=== PATIENT | female | born 1975 | race Caucasian/White ===

== ENCOUNTER → 2018-03-22 08:42 | Outpatient (CLI) | payer BC, SELFPAY ==
--- NOTE | 2018-03-22 08:44 | MM_ITS ---
MM Dig screening mamm BI w/CAD ORDERING PHYSICIAN : Benjie Thomas MD PATIENT AGE: 42 years GENDER: Female COMPARISON: July INDICATION: ITS.REASON: screening. Previous stereotactic biopsy on the left TECHNIQUE: Standard CC and MLO images were obtained. R2 CAD reviewed. FINDINGS: Moderately dense heterogeneous. The pattern does slightly decrease sensitivity mammography. There is fibroglandular elements extending deep into the axillary tail of both breast. This appearance is been seen previously. Unchanged since last years study Patient denies female hormones but the Fibroglandular elements accentuated today versus study from 2013 possibly reflecting phase of menstrual cycle RIGHT BREAST:. No new areas of significant concern. Slightly unusual distribution stable. . Again the fibroglandular elements extending deep into the axillary tail of both breast is noted LEFT BREAST:No new areas of significant concern. . The metallic marker from previous left percutaneous biopsy is evident. Upper-outer quadrant left breast, far lateral. -------IMPRESSION: No new areas of significant concern. Moderately dense heterogeneous breast bilaterally again evident.. We again see a slightly unusual distribution of fibroglandular elements disease continues deep into the axillary tail of both right and left breast. Physical exam towards this axillary tail and axilla important to compliment mammography as the fibroglandular elements may extend slightly posterior to our image on this and prior studies. Again I see no focal new areas concern but this slight anatomic variant aspect noted Clinical follow-up should be emphasized and encouraged BI-RADS Category: 2 Benign Finding(s) RECOMMENDED FOLLOW-UP: 1YR 1 YEAR FOLLOW-UP (A letter has been sent to the patient regarding results of the study.)
== END ==
PROVIDERS: Family Provider Family Medicine; PCP Family Medicine; Visit Provider Obstetrics & Gynecology
DX: Z12.31 Encounter for screening mammogram for malignant neoplasm of breast (principal)
CPT/HCPCS: 77067

== ENCOUNTER → 2018-04-18 17:56 | Outpatient (CLI) | payer BC, SELFPAY ==
--- NOTE | 2018-04-18 18:05 | XR_ITS ---
XR chest 2V HISTORY: ITS.REASON: ACUTE PAIN OF RIGHT SHOULDER, WEAKNESS OF RIGHT ARM ORDERING PHYSICIAN: Kristine Serrano PATIENT AGE: 42 years COMPARISON: 09/17/2016 FINDINGS: Unremarkable cardiovascular structures. There is thickening of the right minor fissure. Patchy density is present in the right middle lobe which could be due to some mild infiltrate or postinflammatory scarring. There was dense consolidation in the right middle lobe on the older exam. Left lung is clear. There is a bone plate over the lower cervical spine and there are surgical clips in the right upper quadrant. IMPRESSION: Thickening of the right minor fissure with patchy density in the right perihilar region/right middle lobe which could be related to postinflammatory fibrotic change or recurrent infiltrate. Recommend continued follow-up to confirm resolution or stability
== END ==
PROVIDERS: PCP Nurse Practitioner; Visit Provider Nurse Practitioner
DX: M25.511 Pain in right shoulder (principal); R29.898 Other symptoms and signs involving the musculoskeletal system
CPT/HCPCS: 71046

== ENCOUNTER → 2018-04-30 07:34 | Outpatient (CLI) | payer BC, SELFPAY ==
--- NOTE | 2018-04-30 08:00 | CT_ITS ---
CT chest w con HISTORY: Previous bilateral pneumonia 2017 ITS.REASON: ACUTE RT SHOULDER PAIN, RT ARM PAIN ORDERING PHYSICIAN: Kristine Serrano PATIENT AGE: 42 years COMPARISON: CT Chest without contrast September 2016 Technique:. 75 cc Isovue 370 contrast utilized IV. Axial images obtained. Sagittal and coronal reformatted images are also generated and reviewed. All CT scans at the facility use one or more dose reduction, viz: automated exposure control, ma/kV adjustment per patient size (including targeted exams where dose is matched to indication, i.e. head), or iterative reconstruction technique. FINDINGS: Thyroid follow. Unlikely 8.5 mm thyroid nodule upper pole left lobe thyroid. Likely stable. Consider thyroid ultrasound. Mediastinum. No mediastinal mass nor adenopathy of significance. . Small calcified granulomatous nodes at left dorene more so than right Heart is normal in size Aorta, normal caliber satisfactory appearance. Aortic root measuring 3.3 cm Pulmonary artery appears satisfactory with moderate enhancement. LUNG DOSS. There is area of density at the periphery of the right lung. This involves the right middle lobe with slight volume loss in this area to right middle lobe. Given its linear appearance on the coronal view along with the evident more severe pneumonia here previously September 2016, I tend to favor reviewing an area of residual postinflammatory scarring. However this does warrant follow-up and I would recommend a follow-up CT chest in 4- 6 months to confirm stability and reestablish baseline. For this density. There are also some small nodular densities at the right midlung and perihilar region measuring less than 3 mm. Some of these are seen on axial axial image 42-43 & . Also on axial image 38 there is a small 4.5 mm nodular density likely due to scarring as it this into which seems to elongate on the sagittal image 27. Similar density density on axial image 46 at right infrahilar area becomes less evident on other views.. On axial image 53 there is a millimeter nodule at the right CP angle region. This too would benefit from short interval follow-up to sure stability with longer intervals thereafter. On axial image 38, sagittal 54-there is a 5.3 mm nodular density at LLL posterior to the left dorene... Stable small 4 mm calcified granuloma is seen lateral to the left infrahilar region axial image 45 Upper abdomen. Diffuse fatty changes liver likely present. No additional significant findings. Adrenals unremarkable. PLEURAL SPACES: No pleural effusion or pleural thickening... No evidence of pneumothorax. BONY STRUCTURES: No remarkable bony findings. I IMPRESSION 1. Residual linear/slight triangular density at RML and extending along the minor fissure- most likely reflects residual postinflammatory changes & scarring from the 2017 pneumonia. 2. Small, and tiny scattered nodular densities bilaterally. Likely in part sequela from the previous pneumonia is-These are most evident in the right lung & at areas of previous pneumonia. .. With Suggest a follow-up CT chest in 4-6 months to better confirm stability of these densities and nodularity,-& reestablish new baseline
--- NOTE | 2018-04-30 08:00 | CT_ITS ---
CT shoulder RT wo con Ordering Physician: Kristine Serrano Patient Age: 42 years: Female HISTORY: ITS.REASON: ACUTE RT SHOULDER PAIN, RT ARM PAIN TECHNIQUE: Helical CT scanning performed right shoulder. No IV contrast utilized. Axial sagittal and coronal reconstructions performed on CT workstation. All CT scans at this facility used one or more dose reduction techniques , viz: automatic exposure control, ma/Kv adjustment per patient's size, (including targeted exam where dose matched to the indication; i.e. head); or iterative reconstruction technique COMPARISON no shoulder studies:Only previous chest films available FINDINGS The right shoulder appears stable, intact glenohumeral joint intact. AC joint intact. Adequate subacromial space. Humeral head and neck appear satisfactory. No arthritic changes or lesion evident. Scapula appears normal. Clavicle & upper ribs appear satisfactory Without intra-articular contrast CT is limited to evaluate the soft tissues and rotator cuff.. MR is best modality to evaluate the rotator cuff.. However. I see no prominent findings here on today's study.. Soft tissues on today's survey appears satisfactory... Deltoid and other regional muscles appears grossly satisfactory. No obvious joint effusion. Limited images through region of brachial plexus appears satisfactory. Linear triangular density at RML, thickening of the minor fissure and the Scattered small nodular densities at the right lung are again noted as described on CT chest recommended follow-up CT chest 4-6 months to confirm stability of this most prominent RML density as well as stable likely of scattered new areas of nodularity. IMPRESSION: Normal CT right shoulder. Normal relationships. No fracture or findings or lesion. The glenohumeral joint, & AC joint intact. Addendum. Incidental 8 mm nodule upper pole right thyroid noted today's CT chest as well as this CT shoulder study.
== END ==
PROVIDERS: PCP Family Medicine; Visit Provider Nurse Practitioner
DX: M25.511 Pain in right shoulder (principal); R29.898 Other symptoms and signs involving the musculoskeletal system
CPT/HCPCS: 71260; 73200; Q9967

== ENCOUNTER → 2018-05-23 10:18 | Outpatient (CLI) | payer BC, SELFPAY ==
--- NOTE | 2018-05-23 10:27 | US_ITS ---
US thyroid HISTORY: ITS.REASON: THYROID NODULE ORDERING PHYSICIAN: Kristine Serrano PATIENT AGE: 43 years Comparison: 04/30/2018 FINDINGS: Right lobe: The right lobe measures 4 x 1.5 x 1.5 cm. There is a solid appearing 1.3 x 1 cm nodule within the mid polar region with mixed echogenicity having a lobular contour Left lobe: The left lobe measures 4 x 1.2 x 2.1 cm and has an unremarkable appearance. The isthmus has an unremarkable appearance. IMPRESSION: 13 x 10 mm solid appearing nodule of the right lobe of the thyroid gland. Recommend six-month follow-up to confirm short-term stability
== END ==
PROVIDERS: PCP Family Medicine; Visit Provider Nurse Practitioner
DX: E04.1 Nontoxic single thyroid nodule (principal)
CPT/HCPCS: 76536

== ENCOUNTER → 2018-07-02 06:47 | Outpatient (CLI) | payer BC, SELFPAY ==
--- NOTE | 2018-07-02 07:10 | NM_ITS ---
NM thyroid image uptake CLINICAL INDICATION: ITS.REASON: THYROID NODULE ORDERING PHYSICIAN: Kristine Serrano PATIENT AGE: 43 years Comparison: 05/23/2018 DOSE: 303 uCi I-123 by mouth FINDINGS: 24 hour radioiodine uptake normal 25. There is decreased activity involving the upper pole of the right lobe of the thyroid gland which corresponds to the solid nodule as seen on the recent ultrasound. The right lobe and isthmus are somewhat prominent IMPRESSION: 1. Normal 24-hour radioiodine uptake. 2. Solid nodule in the upper pole of the right lobe of the thyroid gland demonstrates decrease activity. Biopsy is suggested. Recommend ultrasound-guided fine-needle aspiration of this nodule
== END ==
PROVIDERS: PCP Nurse Practitioner; Visit Provider Nurse Practitioner
DX: E04.1 Nontoxic single thyroid nodule (principal)
CPT/HCPCS: 78014; A9516

== ENCOUNTER → 2018-07-16 12:32 | Outpatient (CLI) | payer BC, SELFPAY ==
--- NOTE | 2018-07-16 13:00 | US_ITS ---
FNA w guidance, US thyroid HISTORY: Suspicious right thyroid nodule hypoactive on I-123 scan ITS.REASON: THYROID NODULE ORDERING PHYSICIAN: Jonas Vigil MD PATIENT AGE: 43 years COMPARISON: 05/23/2018, 07/02/2018 Prebiopsy ultrasound: Ultrasound performed of the thyroid gland once again demonstrates a solid-appearing nodule in the upper pole the right lobe measuring 14 x 12 mm with possible microcalcifications in the nodule. Biopsy planning was performed and a site marked on the patient's neck for needle placement. TECHNIQUE: Following obtaining informed consent, using aseptic technique and local anesthesia with buffered lidocaine, fine-needle aspiration was performed of the nodule of interest using sonographic guidance. 3 passes were made into the nodule with a 25-gauge needle. Specimen was given to cytology. The patient tolerated the procedure well without evidence of immediate complications and left the ultrasound suite in stable condition. CYTOLOGY:Suspicious for papillary carcinoma IMPRESSION: Fine-needle aspiration of the right lobe of the thyroid gland is suspicious for papillary carcinoma. ENT consult suggested
== END ==
PROVIDERS: PCP Family Medicine; Visit Provider Family Medicine
DX: E04.1 Nontoxic single thyroid nodule (principal)
CPT/HCPCS: 10005; 76536

== ENCOUNTER → 2019-04-25 15:43 | Outpatient (CLI) | payer BC, SELFPAY ==
--- NOTE | 2019-04-25 15:45 | MM_ITS ---
PROCEDURE: MM DIG SCREENING MAMM BI W/CAD CLINICAL INDICATION: screening There is a history of breast cancer in the patient's paternal aunt diagnosed before menopause. There has been a previous biopsy left breast for benign disease COMPARISON: [facility]MDX[facility] DIG MAMM-DX UNI-LT from 05/22/2015 [facility] DIG MAMM-SCREEN RADHA W/CAD from 08/04/2016 [facility] MM Dig screening mamm BI w/CAD from 03/22/2018 TECHNIQUE: Standard CC and MLO images were obtained. R2 CAD reviewed. FINDINGS: Prominent diffuse fibroglandular densities are seen throughout both breasts. There is a biopsy clip upper outer quadrant left breast. There are couple of benign-appearing microcalcifications left breast. There is no suspicious lesion and no suspicious microcalcifications. IMPRESSION: Moderate diffuse breast density with no suspicious lesions seen BI-RAD Category: 2 Benign Finding(s) FOLLOW-UP: 1YR 1 Year Follow-up (A letter has been sent to the patient regarding results of the study.) Dictated by: Dr. James Ledezma MD 04/28/2019 13:[address] James Ledezma MD in [place] 04/28/2019 13:58
== END ==
PROVIDERS: PCP Family Medicine; Visit Provider Obstetrics & Gynecology
DX: Z12.31 Encounter for screening mammogram for malignant neoplasm of breast (principal)
CPT/HCPCS: 77067

== ENCOUNTER → 2021-02-22 12:35 | Outpatient (CLI) | payer BC, SELFPAY | PROVIDERS: PCP Nurse Practitioner Family; Visit Provider Nurse Practitioner Family | DX: Z20.822 Contact with and (suspected) exposure to COVID-19 (principal) | CPT/HCPCS: C9803; U0003; U0005 ==

== ENCOUNTER → 2021-05-28 08:43 | Outpatient (CLI) | payer BC, SELFPAY | PROVIDERS: PCP Family Medicine; Visit Provider Nurse Practitioner | DX: U07.1 COVID-19 (principal) | CPT/HCPCS: C9803; U0003; U0005 ==

== ENCOUNTER → 2021-06-04 08:28 | Outpatient (CLI) | payer BC, SELFPAY | PROVIDERS: PCP Family Medicine; Visit Provider Nurse Practitioner | DX: U07.1 COVID-19 (principal) | CPT/HCPCS: C9803; U0003; U0005 ==

== ENCOUNTER → 2021-06-28 16:42 | Outpatient (CLI) | payer BC, SELFPAY ==
--- NOTE | 2021-06-28 16:43 | MM_ITS ---
PROCEDURE INFORMATION: Exam: MG Bilateral Screening 3D Mammography Exam date and time: 06/28/2021 4:43 PM Age: 46 years old Clinical indication: Encounter for screening mammogram for malignant neoplasm of breast TECHNIQUE: Imaging protocol: Screening tomosynthesis and 2D mammography including computer-aided detection (CAD) when performed. COMPARISON: 1. MG MM DIG SCREENING MAMM BI W/CAD 04/25/2019 4:26 PM 2. MG [facility] MM Dig screening mamm BI w/CAD 03/22/2018 8:48 AM FINDINGS: MAMMOGRAPHY: Breast composition: The breast tissue is heterogeneously dense, which may obscure small masses. Mass: None. Architectural distortion: None. Calcifications: No suspicious calcifications. Asymmetric density: None. Skin thickening: None. Axillary adenopathy: None. IMPRESSION: No mammographic evidence of malignancy. Annual screening is recommended unless otherwise clinically indicated. ASSESSMENT: BI-RADS Category 1: Negative
== END ==
PROVIDERS: PCP Family Medicine; Visit Provider Obstetrics & Gynecology
DX: Z12.31 Encounter for screening mammogram for malignant neoplasm of breast (principal)
CPT/HCPCS: 77063; 77067

== ENCOUNTER → 2022-07-01 07:53 | Outpatient (CLI) | payer BC, SELFPAY ==
--- NOTE | 2022-07-01 07:53 | MM_ITS ---
PROCEDURE INFORMATION: Exam: MG Bilateral Screening 3D Mammography Exam date and time: 07/01/2022 7:57 AM Age: 47 years old Clinical indication: Screening examination TECHNIQUE: Imaging protocol: Bilateral Screening tomosynthesis and 2D mammography including computer-aided detection (CAD) when performed. COMPARISON: 1. MG MM DIG SCREENING MAMM BI W/CAD 06/28/2021 4:40 PM 2. MG MM DIG SCREENING MAMM BI W/CAD 04/25/2019 4:26 PM FINDINGS: MAMMOGRAPHY: Breast composition: There are scattered areas of fibroglandular density. Mass: None. Architectural distortion: None. Calcifications: No suspicious calcifications. Asymmetric density: None. Skin thickening: None. Axillary adenopathy: None. IMPRESSION: No mammographic evidence of malignancy. Annual screening is recommended unless otherwise clinically indicated. ASSESSMENT: BI-RADS Category 1: Negative
== END ==
PROVIDERS: PCP Family Medicine; Visit Provider Obstetrics & Gynecology
DX: Z12.31 Encounter for screening mammogram for malignant neoplasm of breast (principal)
CPT/HCPCS: 77063; 77067

== ENCOUNTER → 2022-08-19 10:25 | Outpatient (CLI) | payer BC, OTHER, SELFPAY ==
--- NOTE | 2022-08-19 10:29 | XR_ITS ---
FINAL REPORT CLINICAL HISTORY: back pain x 2 days no trauma may have lifted suitcase wrong FINDINGS: THORACIC SPINE Three views were obtained. There is no acute fracture. There is no malalignment. There is leftward curvature. There are [id number] degenerative changes. There is no soft tissue abnormality. IMPRESSION: Mild to moderate degenerative change with no acute bony abnormality. Reviewed, Interpreted and Dictated by Luis Ahmadi III, MD Transcribed by Alberta June Authenticated and [facility]
== END ==
PROVIDERS: PCP Family Medicine; Visit Provider Family Medicine
DX: M54.9 Dorsalgia, unspecified (principal); M54.6 Pain in thoracic spine
CPT/HCPCS: 72072

== ENCOUNTER → 2022-09-07 14:26 | Outpatient (CLI) | payer BC, OTHER, SELFPAY ==
--- NOTE | 2022-09-07 14:27 | MR_ITS ---
FINAL REPORT TECHNIQUE: Multiplanar and multisequence MR imaging was obtained through the thoracic spine. CLINICAL HISTORY: back pain bilateral arm numbness x 1 month FINDINGS: There is normal alignment of the thoracic vertebral bodies. Vertebral body height is preserved. There is a hemangioma in the midthoracic vertebral body. Signal intensity within the substance of the spinal cord is normal. No acute paraspinal abnormality is identified. There is no focal disc herniation, central stenosis, or foraminal narrowing. IMPRESSION: Unremarkable MRI of the thoracic spine. Reviewed, Interpreted and Dictated by Jennifer Cramer MD Transcribed by Juliana Frias Authenticated and [facility]
== END ==
PROVIDERS: PCP Family Medicine; Visit Provider Family Medicine
DX: M54.9 Dorsalgia, unspecified (principal); M54.6 Pain in thoracic spine
CPT/HCPCS: 72146

== ENCOUNTER → 2023-02-15 07:48 | Outpatient (CLI) | payer BC, OTHER, SELFPAY ==
[2023-02-15 07:55] LABS: Microscopic, Urine URINE MICROSCOPIC (MICROSCOPIC)
[2023-02-15 08:14] LABS: Appearance,Urine CLEAR (Clear); Bilirubin,Urine Negative (Negative); Blood, Urine TRACE-I (Negative); Color,Urine YELLOW (Yellow); Glucose,Urine (UA) Negative (Negative); Ketones,Urine Negative (Negative); Leukocyte Esterase,Urine Negative (Negative); Nitrate,Urine Negative (Negative); Protein,Urine Negative (Negative); Specific Gravity, Urine >= 1.030 (1.005-1.030); Urobilinogen,Urine 0.2 EU/dl (0.2)
[2023-02-15 08:19] LABS: Basophils # 0.1 K/mm3 (0-0.2); Basophils % 1.6 % (0.1-2.0); Eosinophils # 0.1 K/mm3 (0.0-0.4); Eosinophils % 1.6 % (0.1-12.0); Hemoglobin 13.1 g/dL (12.2-16.2); Lymphocytes # 2.2 K/mm3 (0.7-4.5); Lymphocytes % 30.7 % (10-50); Mean Corpuscular HGB Conc 32.7 g/dL (31.8-35.4); Mean Corpuscular Hemoglobin 28.6 pg (27.0-31.2); Mean Corpuscular Volume 87.7 fl (81-99); Mean Platelet Volume 8.9 fl (7.4-10.4); Monocytes # 0.3 K/mm3 (0.1-1.0); Monocytes % 4.6 % (1.7-9.3); Neutrophils # 4.4 K/mm3 (1.8-7.8); Neutrophils % 63.1 % (37.0-80.0); Platelet Count 258 K/mm3 (142-424); Red Blood Count 4.56 M/mm3 (4.20-5.40); Red Cell Distribution Width 13.6 % (11.5-17.5)
[2023-02-15 08:24] LABS: Squamous Epithelial Cell,Urine Occasional #/hpf (0-5); WBC,Urine Occasional #/hpf (0-3)
[2023-02-15 09:09] LABS: Alanine Aminotransferase 27 U/L (12-78); Albumin Level 4.4 g/dl (3.5-5.0); Albumin/Globulin Ratio 1.8 (1.1-1.8); Alkaline Phosphatase 88 U/L (38-126); Anion Gap 12.3 mEq/L (5-15); Aspartate Amino Transferase 27 U/L (14-36); Blood Urea Nitrogen 28 mg/dl (7-17); Calcium 8.5 mg/dl (8.4-10.2); Carbon Dioxide 29 mmol/L (22.0-30.0); Chloride 105 mmol/L (98-107); Chol/HDL Ratio 3.1 (1-3.5); Cholesterol 179 mg/dl (140-200); Estimated Glomerular Filt Rate 89 ml/min (>60); GFR (African American) 108 ML/MIN (>60); Globulin 2.5 g/dL (1.3-3.2); Glucose 95 mg/dl (74-100); HDL Cholesterol 58 mg/dl (40-60); Potassium 4.3 mmoL/L (3.5-5.1); Sodium 142 mmol/L (136-145); Total Protein,Serum 6.9 g/dl (6.3-8.2); Triglycerides 78 mg/dl (30-150); VLDL Cholesterol 16 mg/dL (0-40)
[2023-02-15 09:15] LABS: Bilirubin,Total 0.1 mg/dl (0.2-1.3)
[2023-02-15 09:21] LABS: Direct LDL Cholesterol 92.26 mg/dL (100-129)
[2023-02-15 09:25] LABS: Free T4 (Free Thyroxine) 1.13 ng/dl (0.78-2.19)
[2023-02-15 09:26] LABS: 25-OH Vitamin D, Total 101 ng/mL (30-100)
[2023-02-15 09:39] LABS: Thyroid Stimulating Hormone 2.09 uIU/mL (0.465-4.68)
[2023-02-15 11:27] LABS: Total Protein,Urine Random < 5.0 mg/dL (0.0-12.0)
[2023-02-15 12:20] LABS: Vitamin B12 4060 pg/mL (239-931)
== END ==
PROVIDERS: PCP Nurse Practitioner Family; Visit Provider Nurse Practitioner Family
DX: I10 Essential (primary) hypertension (principal); E03.9 Hypothyroidism, unspecified; R53.83 Other fatigue; E67.3 Hypervitaminosis D; Z13.1 Encounter for screening for diabetes mellitus; Z13.220 Encounter for screening for lipoid disorders; Z79.899 Other long term (current) drug therapy
CPT/HCPCS: 36415; 80053; 80061; 81001; 82306; 82607; 83036; 84155; 84439; 84443; 85025; 87086

== ENCOUNTER 2023-07-17 07:39 | Outpatient (CLI) | payer BC, OTHER, SELFPAY ==
--- NOTE | 2023-07-17 07:40 | MM_ITS ---
PROCEDURE INFORMATION: Exam: MG Bilateral Screening 3D Mammography Exam date and time: 07/17/2023 7:51 AM Age: 48 years old Clinical indication: Screening examination TECHNIQUE: Imaging protocol: Bilateral Screening tomosynthesis and 2D mammography including computer-aided detection (CAD) when performed. COMPARISON: 1. MG MM DIG SCREENING MAMM BI W/CAD 07/01/2022 7:57 AM 2. MG MM DIG SCREENING MAMM BI W/CAD 06/28/2021 4:40 PM FINDINGS: MAMMOGRAPHY: Breast composition: There are scattered areas of fibroglandular density. Mass: Questionable 0.5 cm mass in the posterior left medial breast only seen in the craniocaudal projection. Architectural distortion: None. Calcifications: No suspicious calcifications. Asymmetric density: None. Skin thickening: None. Axillary adenopathy: None. IMPRESSION: Patient to be recalled for a spot compression view of the left breast in the craniocaudal projection, a full 90 degree lateral view of the left breast, and left breast ultrasound for further evaluation of a questionable left breast mass. ASSESSMENT: BI-RADS Category 0: Incomplete- Need Additional Imaging Evaluation and/or Prior Mammograms for Comparison
== END 2023-07-17 23:59 ==
LOC: RAD 07:40
PROVIDERS: PCP Nurse Practitioner Family; Visit Provider Obstetrics & Gynecology
DX: Z12.31 Encounter for screening mammogram for malignant neoplasm of breast (principal)
CPT/HCPCS: 77063; 77067

== ENCOUNTER 2023-07-20 15:13 | Outpatient (CLI) | payer BC, OTHER, SELFPAY ==
--- NOTE | 2023-07-20 15:23 | US_ITS ---
PROCEDURE INFORMATION: Exam: US Left Breast, Complete MG Left Diagnostic Breast Tomosynthesis Exam date and time: 07/20/2023 3:14 PM Age: 48 years old Clinical indication: Patient recalled on the basis of a screening mammogram for further evaluation; Left breast; mass TECHNIQUE: Imaging protocol: Complete ultrasound of all four quadrants of the left breast and the retroareolar regions, including ultrasound of the axilla when performed. Left Diagnostic tomosynthesis and 2D mammography including computer-aided detection (CAD) when performed. Unilateral or bilateral exam. COMPARISON: 1. MG MM DIG SCREENING MAMM BI W/CAD 07/17/2023 7:51 AM 2. MG MM DIG SCREENING MAMM BI W/CAD 07/01/2022 7:57 AM FINDINGS: MAMMOGRAPHY: Digital diagnostic spot compression views of the left breast and 90 degree lateral view of the left breast demonstrate normal overlapping fibroglandular structures without persistent mass or asymmetry identified. ULTRASOUND: Sonographic images of the left breast demonstrate an incidental 0.5 cm 11 o'clock axis cyst 9 cm from the nipple in close proximity to a 0.4 cm cyst. No solid masses. No architectural distortion or acoustical shadowing. No skin thickening or axillary adenopathy. IMPRESSION: No mammographic or sonographic evidence of malignancy. Annual bilateral mammographic screening is recommended unless otherwise clinically indicated. ASSESSMENT: BI-RADS Category 2: Benign
== END 2023-07-20 23:59 ==
LOC: RAD 15:14
PROVIDERS: PCP Nurse Practitioner Family; Visit Provider Obstetrics & Gynecology
DX: N63.20 Unspecified lump in the left breast, unspecified quadrant (principal); R92.8 Other abnormal and inconclusive findings on diagnostic imaging of breast
CPT/HCPCS: 76641; 77061; 77065; G0279

== ENCOUNTER 2023-12-05 09:54 | Outpatient (CLI) | payer BC, OTHER, SELFPAY ==
--- NOTE | 2023-12-05 09:55 | US_ITS ---
PROCEDURE INFORMATION: Exam: US Left Breast, Complete Exam date and time: 12/05/2023 9:54 AM Age: 48 years old Clinical indication: Palpable abnormality in the left breast TECHNIQUE: Imaging protocol: Complete ultrasound of all four quadrants of the left breast and the retroareolar regions, including ultrasound of the axilla when performed. COMPARISON: US BREAST LT COMPLETE 07/20/2023 3:34 PM FINDINGS: ULTRASOUND: Breast ultrasound findings: Sonographic images of the left breast including the retroareolar region, all 4 quadrants and the axilla do not demonstrate any solid masses. Minimal subcentimeter cystic change is scattered in the left breast including the left 11 o'clock axis 7 cm from the nipple where a 0.3 cm cyst is noted. Cursors were placed in the left 11 o'clock axis 7 cm from the nipple over benign cystic change and adjacent normal fibroglandular tissue. No architectural distortion or acoustical shadowing. No skin thickening or axillary adenopathy. IMPRESSION: A skin marker should be placed over the area of palpable concern followed by a diagnostic unilateral mammogram with spot compression views for full evaluation of the patient's complaint of a palpable abnormality. ASSESSMENT: BI-RADS Category 0: Incomplete- Need Additional Imaging Evaluation and/or Prior Mammograms for Comparison.
== END 2023-12-05 23:59 | disposition home or self-care (01) ==
LOC: RAD 09:55
PROVIDERS: PCP Nurse Practitioner Family; Visit Provider Obstetrics & Gynecology
DX: N63.22 Unspecified lump in the left breast, upper inner quadrant (principal)
CPT/HCPCS: 76641

== ENCOUNTER 2023-12-18 13:59 | Outpatient (CLI) | payer BC, OTHER, SELFPAY ==
--- NOTE | 2023-12-18 14:00 | MM_ITS ---
PROCEDURE INFORMATION: Exam: MG Left Diagnostic Breast Tomosynthesis Exam date and time: 12/18/2023 1:54 PM Age: 48 years old Clinical indication: Left breast palpable lump TECHNIQUE: Imaging protocol: Left Diagnostic tomosynthesis and 2D mammography including computer-aided detection (CAD) when performed. Unilateral or bilateral exam. COMPARISON: 1. MG MM DIG MAMM DX UNILAT LT CAD 07/20/2023 3:14 PM 2. MG MM DIG SCREENING MAMM BI W/CAD 07/17/2023 7:51 AM FINDINGS: MAMMOGRAPHY: Breast composition: Breast composition: There are scattered areas of fibroglandular density. Breast mammogram findings: A skin marker was placed over an area of palpable concern in the posterior left upper breast. Routine and spot compression views do not demonstrate any suspicious findings.There is no stellate mass, architectural distortion or suspicious microcalcifications to suggest malignancy. No skin thickening or axillary adenopathy. Sonography performed 12/05/2023 did not demonstrate any suspicious findings. IMPRESSION: Palpable abnormality in the left breast corresponds both mammographically and sonographically to normal fibroglandular structures and minimal subcentimeter cystic change. There is no mammographic evidence of malignancy. Further evaluation of a palpable abnormality should be based on clinical grounds regardless of radiographic findings or lack thereof. Annual mammographic screening is recommended unless otherwise clinically indicated. ASSESSMENT: BI-RADS Category 1: Negative
== END 2023-12-18 23:59 | disposition home or self-care (01) ==
LOC: RAD 14:00
PROVIDERS: PCP Nurse Practitioner Family; Visit Provider Obstetrics & Gynecology
DX: R92.8 Other abnormal and inconclusive findings on diagnostic imaging of breast (principal)
CPT/HCPCS: 77061; 77065; G0279

== ENCOUNTER 2024-02-13 16:40 | Outpatient (CLI) | payer BC, OTHER, SELFPAY ==
[2024-02-13 12:49] LABS: Microscopic, Urine URINE MICROSCOPIC (MICROSCOPIC)
[2024-02-13 13:05] LABS: Basophils # 0.1 K/mm3 (0-0.2); Basophils % 1.4 % (0.1-2.0); Eosinophils # 0.1 K/mm3 (0.0-0.4); Eosinophils % 0.9 % (0.1-12.0); Hematocrit 42.4 % (37.0-47.0); Hemoglobin 13.4 g/dL (12.2-16.2); Lymphocytes # 2.1 K/mm3 (0.7-4.5); Lymphocytes % 30.3 % (10-50); Mean Corpuscular HGB Conc 31.5 g/dL (31.8-35.4); Mean Corpuscular Hemoglobin 28.6 pg (27.0-31.2); Mean Corpuscular Volume 90.9 fl (81-99); Mean Platelet Volume 9.4 fl (7.4-10.4); Monocytes # 0.4 K/mm3 (0.1-1.0); Monocytes % 5.2 % (1.7-9.3); Neutrophils # 4.3 K/mm3 (1.8-7.8); Neutrophils % 62.2 % (37.0-80.0); Platelet Count 323 K/mm3 (142-424); Red Blood Count 4.67 M/mm3 (4.20-5.40); Red Cell Distribution Width 13.8 % (11.5-17.5); White Blood Count 6.8 K/mm3 (4.8-10.8)
[2024-02-13 13:31] LABS: Albumin Level 4.6 g/dl (3.5-5.0); Chloride 105 mmol/L (98-107); Potassium 4.7 mmoL/L (3.5-5.1); Sodium 139 mmol/L (136-145)
[2024-02-13 13:33] LABS: Alanine Aminotransferase 33 U/L (12-78); Blood Urea Nitrogen 27 mg/dl (7-17); Estimated Glomerular Filt Rate 106 ml/min (>60); GFR (African American) 129 ML/MIN (>60)
[2024-02-13 13:34] LABS: Albumin/Globulin Ratio 1.6 (1.1-1.8); Alkaline Phosphatase 85 U/L (38-126); Anion Gap 8.7 mEq/L (5-15); Aspartate Amino Transferase 39 U/L (14-36); Bilirubin,Total 0.5 mg/dl (0.2-1.3); Calcium 8.8 mg/dl (8.4-10.2); Carbon Dioxide 30 mmol/L (22.0-30.0); Chol/HDL Ratio 3.3 (1-3.5); Cholesterol 231 mg/dl (140-200); Globulin 2.8 g/dL (1.3-3.2); Glucose 80 mg/dl (74-100); HDL Cholesterol 71 mg/dl (40-60); Iron 69 ug/dL (37-170); Total Protein,Serum 7.4 g/dl (6.3-8.2); Triglycerides 156 mg/dl (30-150); VLDL Cholesterol 31 mg/dL (0-40)
[2024-02-13 13:44] LABS: Total Iron Binding Capacity 368 ug/dL (265-497)
[2024-02-13 13:45] LABS: Direct LDL Cholesterol 121.86 mg/dL (100-129); Hemoglobin A1C 5.2 % (4.0-6.0)
[2024-02-13 13:53] LABS: 25-OH Vitamin D, Total 94.4 ng/mL (30-100); Free T4 (Free Thyroxine) 1.19 ng/dl (0.78-2.19)
[2024-02-13 14:00] LABS: HIV (1&2) Antibody Rapid NONREACTIVE (NONREACTIVE)
[2024-02-13 14:07] LABS: Thyroid Stimulating Hormone 2.67 uIU/mL (0.465-4.68)
[2024-02-13 14:11] LABS: Ferritin 75.1 ng/ml (6.24-137)
[2024-02-13 14:13] LABS: Appearance,Urine SL CLOUDY (Clear); Bilirubin,Urine Negative (Negative); Blood, Urine Negative (Negative); Color,Urine YELLOW (Yellow); Glucose,Urine (UA) Negative (Negative); Ketones,Urine Negative (Negative); Leukocyte Esterase,Urine Negative (Negative); Nitrate,Urine Negative (Negative); PH,Urine 6.5 (5.0-8.5); Protein,Urine Negative (Negative); Specific Gravity, Urine 1.025 (1.005-1.030); Urobilinogen,Urine 0.2 EU/dl (0.2)
[2024-02-13 14:20] LABS: Total Protein,Urine Random < 5.0 mg/dL (0.0-12.0)
[2024-02-13 14:30] LABS: Bacteria,Urine Trace /lpf; WBC,Urine Occasional #/hpf (0-3)
[2024-02-13 15:38] LABS: Vitamin B12 903 pg/mL (239-931)
[2024-02-15 11:52] LABS: HCV Ab Non Reactive (Non Reactive)
== END 2024-02-13 23:59 | disposition home or self-care (01) ==
LOC: LAB.DROPOF 16:41
PROVIDERS: PCP Nurse Practitioner Family; Visit Provider Nurse Practitioner Family
DX: Z13.1 Encounter for screening for diabetes mellitus (principal); R42 Dizziness and giddiness; R00.2 Palpitations; R53.83 Other fatigue; Z11.59 Encounter for screening for other viral diseases; E03.9 Hypothyroidism, unspecified; I10 Essential (primary) hypertension; Z13.220 Encounter for screening for lipoid disorders; Z11.4 Encounter for screening for human immunodeficiency virus [HIV]; E55.9 Vitamin D deficiency, unspecified; Z72.0 Tobacco use
CPT/HCPCS: 86803; 86703; 80050; 80053; 80061; 81001; 82306; 82607; 82728; 83036; 83540; 83550; 84156; 84439; 84443; 85025; 87086

== ENCOUNTER 2024-02-16 13:05 | Outpatient (CLI) | payer BC, OTHER, SELFPAY | END 2024-02-16 23:59 | disposition home or self-care (01) | LOC: RT 13:05 | PROVIDERS: PCP Nurse Practitioner Family; Visit Provider Nurse Practitioner Family | DX: R00.2 Palpitations (principal) | CPT/HCPCS: 93270 ==

== ENCOUNTER 2024-02-23 13:41 | Outpatient (CLI) | payer BC, OTHER, SELFPAY ==
--- NOTE | 2024-02-23 13:44 | CA_ITS ---
APPROVED REPORT EXAM: Comprehensive 2D, Doppler, and color-flow Echocardiogram Journalism Internship: Apurva Jefferson RVT Ht: 5 ft 3 in Wt: 150lbs BSA: 1.71 BP: 123/76 mmHg Indications: HTN,SMOKER 2D Dimensions LA Volume 23.00 mL LA Volume Index 13.45 mL/m2 (M/F) 16-34 M-Mode Dimensions RVDd 2.53 cm (0.9-2.6) LA Diam 2.89 cm (1.9-4.0) LVDd 4.46 cm (3.5-5.7) LVDs 2.71 cm (3.5-5.7) IVSd 0.61 cm (0.6-1.1) PWd 0.43 cm (0.6-1.1) EF (Teich) 69.80% FS 39.20% EDV (Teich) 90.50 mL TAPSE 2.58 (<1.7) ESV (Teich) 27.30 mL LV Diastology E Decel Time 227 (160-240 msec) E/A Ratio 0.8 Aortic Valve ORACIO Index 1.17 cm2/m2 AoV Peak Jack. 133.0 (50-130 cm/s) AO Peak GR. 7.10 mmHg AO Mean GR. 3.60 (<5 mmHg) AO VTI 23.6 (18-25 cm) ORACIO (VTI) 2.04 (2.5-4.5 cm2) Mitral Valve MV E Max Jack. 65.0 (40-130 cm/s) MV A Velocity 83.0 (40-130 cm/s) E/A Ratio 0.79 MV PHT 66.0 ms Pulmonary Valve PV Peak Velocity 98.0 (50-150 cm/s) Left Ventricle The left ventricle is normal size. The left ventricular systolic function is normal. The left ventricular ejection fraction is within the normal range. There is normal left ventricular wall thickness. There is normal LV segmental wall motion. The left ventricular diastolic function is normal. LVEF is 55%. Right Ventricle The right ventricle is normal size. The right ventricular systolic function is normal. Atria The left atrium size is normal. The right atrium size is normal. There is no Doppler evidence of interatrial shunt. Aortic Valve The aortic valve opens well. There is no aortic valvular stenosis. No aortic regurgitation is present. Mitral Valve The mitral valve is normal in structure. No evidence of mitral valve stenosis. There is no mitral valve regurgitation noted. Tricuspid Valve Tricuspid valve is grossly normal in structure and function. Trace tricuspid regurgitation. There is insufficient TR jet to estimate RVSP. Pulmonic Valve The pulmonary valve is normal in structure. Trace pulmonic regurgitation. Great Vessels The aortic root is normal in size. The ascending aorta is normal in size. IVC is normal in size and collapses >50% with inspiration. Pericardium There is no pericardial effusion. Other Information Study Quality: Adequate Conclusion Normal biventricular systolic function. No significant valvular stenosis or regurgitation. Electronically signed by : Lakeshia Elias MD 02/26/2024 15:21:57
== END 2024-02-23 23:59 | disposition home or self-care (01) ==
LOC: RT 13:42
PROVIDERS: PCP Nurse Practitioner Family; Visit Provider Nurse Practitioner Family
DX: R00.2 Palpitations (principal); R42 Dizziness and giddiness
CPT/HCPCS: 93306

== ENCOUNTER → 2024-03-12 06:45 | Outpatient (CLI) | payer BC, OTHER, SELFPAY | LOC: SL 03-15 06:46 | PROVIDERS: PCP Nurse Practitioner Family; Visit Provider Nurse Practitioner Family | DX: G47.36 Sleep related hypoventilation in conditions classified elsewhere (principal); R06.83 Snoring | CPT/HCPCS: G0399 ==

== ENCOUNTER 2024-03-15 07:55 | Outpatient (CLI) | payer BC, OTHER, SELFPAY ==
--- NOTE | 2024-03-15 | CA_ITS ---
APPROVED REPORT Exam: Exercise Treadmill Technologist: Oma Bland, Ht: 5 ft 3 in Wt: 155 lbs BSA: 1.74 m2 HR: 83 bpm BP: 121/79 mmHg Rhythm: NSR Medical History Medications: Levothyroxine,,,,, TriaMterene HCTZ,,,,, Cardiac Risk Factors: HTN, FHX of CAD, Smoking Stress Test Details Test: Kanwal HR Resting HR: 90 bpm Max Heart Rate (APMHR): 171 bpm Max HR Achieved: 143 bpm Target HR (85% APMHR): 145 bpm % of APMHR: 84 Recovery HR: 143 bpm BP Resting BP: 118.0/88.0 mmHg Max BP: 174.0/86.0 mmHg Recovery BP: 146.0/71.0 mmHg ECG Resting ECG: NSR Clinical Exercise duration: 06:32 min Highest Stage Achieved: Exercise capacity: 7.0 METs Stress ECG Conclusion During kanwal protocol pt experinced SOA and heart pounding. No CP noted. No arrhythmias noted. Normal ST response to exercise. Normal GXT. GXT only. Test Summary REST . . . . . . . Sitting REST . . . . . . . Standing REST 03:26 0.0 0.0 90 . 118/ 88 . . Stage 1 01:00 10.0 1.7 115 . . . . Stage 1 02:00 10.0 1.7 112 . . . . Stage 1 03:00 10.0 1.7 117 . 154/ 82 . . Stage 2 01:00 12.0 2.5 129 . . . . Stage 2 02:00 12.0 2.5 132 . . . . Stage 2 03:00 12.0 2.5 137 . 174/ 86 . . Stage 3 00:32 14.0 3.4 142 . . . Stop exercise at 06:32 RECOVERY 01:00 0.0 0.0 123 . . . . RECOVERY 02:00 0.0 0.0 108 . 146/ 73 . . RECOVERY 03:00 0.0 0.0 96 . 137/ 78 . . RECOVERY 04:00 0.0 0.0 95 . 132/ 76 . . RECOVERY 05:00 0.0 0.0 93 . 137/ 77 . . RECOVERY 05:18 0.0 0.0 87 . 137/ 77 . . Electronically signed by : Lakeshia Elias MD 04/04/2024 13:01:56
== END 2024-03-15 23:59 | disposition home or self-care (01) ==
LOC: RT 07:56
PROVIDERS: PCP Nurse Practitioner Family; Visit Provider Nurse Practitioner Family
DX: R06.09 Other forms of dyspnea (principal); R07.89 Other chest pain
CPT/HCPCS: 93017; 93018

== ENCOUNTER 2024-03-19 20:45 | Emergency (ER) | payer BC, OTHER, SELFPAY ==
[2024-03-19 20:46] VITALS: BP 149/95; PULSE 80; RESP 17; TEMP 36.6; O2SAT 100; BMI 27.4
--- NOTE | 2024-03-19 20:54 | ECG_ITS ---
APPROVED REPORT Exam: Resting ECG HR:75 bpm ECG Measurements Heart Rate 75 AXES ID 180 P 58 QRSd 83 QRS 39 QT 371 T 60 QTc 400 Conclusion SINUS RHYTHM NORMAL ECG Electronically signed by : JOS JEAN, 03/19/2024 22:41:31
--- NOTE | 2024-03-19 20:59 | ED_ITS ---
<Statement entered by Michelle Agee DO - 03/19/24 22:46> I was consulted by the SAI, and we discussed the complexity of the problems being addressed. I approved the treatment and management plan for this patient's care in the emergency department, thus performing a substantive portion of the medical decision making. Michelle Agee DO Discharge Plan Disposition Patient Disposition: Home, Self-Care Condition: Good Prescriptions Prescriptions: New meclizine 25 mg tablet 25 mg PO QID PRN (Reason: dizziness) Qty: 20 0RF No Action levothyroxine 137 mcg tablet 137 mcg PO DAILY triamterene-hydrochlorothiazid 37.5-25 mg tablet 1 tab PO DAILY Qty: 90 3RF Referrals Follow up/Referrals: Paty Cao APRN [Primary Care Provider] - See instructions Activity Restrictions/Add. Instructions Additional Instructions/Restrictions: Please keep your appointment with ENT and neurology as arranged by your PCP. Return to ER for any worsening signs or symptoms as needed. I have sent meclizine into your pharmacy for symptomatic dizziness treatment.. Clinical Impressions Clinical Impression: Dizziness Print Language Print Language: Mauritanian Discharge ED Provider: Michelle Agee General Adult HPI <SHANTANU Lopez - Last Filed: 03/19/24 23:08> General Chief complaint: Weakness Stated complaint: palpatations Time Seen by Provider: 03/19/24 20:59 Mode of Arrival: Ambulatory Source of Information: Patient Limitations: No Limitations Description of Symptoms (Recalled from ER Triage Doc. by RN): Pt presents to ED for weakness, nausea, and heart palpitations. Pt states this has been going on for about a month and a half. Pt states she's had stress test, echo, and follow up with cards. All were normal. Pt states she has no pain at this time. Pt is A&O*4 and is bedside. History of Present Illness HPI narrative: Patient presents for evaluation of dizziness weakness and paresthesias. Patient has had 4 weeks of intermittent unprovoked dizziness. Patient states that the dizziness started first and then she had subjective palpitations along with some tingling in her upper extremities. She denies loss of consciousness trauma alteration in level of consciousness shortness of breath fever chills hemoptysis hematochezia melena nausea vomiting diarrhea. Latest episode was today. Patient is currently asymptomatic. She was initially worked up by her PCP for the symptoms and referred to cardiology which did an extensive cardiac workup and as far that has been negative including negative stress test and Holter monitor. Patient reports that dizziness symptoms as spinning of the room that is not made worse by position. Patient also reports that she may be panicking as she is not sure if she is having a stroke even though she has no focal neurologic deficits. Related Data Home Medications ?Medication ?Instructions ?Recorded ?Confirmed levothyroxine 137 mcg tablet 137 mcg PO DAILY 11/29/23 03/04/24 Previous Rx's ?Medication ?Instructions ?Recorded triamterene 37.5 1 tab PO DAILY #90 tabs 02/16/24 mg-hydrochlorothiazide 25 mg tablet meclizine 25 mg tablet 25 mg PO QID PRN dizziness #20 tabs 03/19/24 Allergies Allergy/AdvReac Type Severity Reaction Status Date / Time No Known Drug Allergies Allergy Unknown Verified 03/04/24 09:00 [facility] <SHANTANU Lopez - Last Filed: 03/19/24 23:08> [facility] Disclaimer: The information contained in this section may have been updated after the patient was seen, as this information can be updated by other users. Medical History Establishing care with new doctor, encounter for Sinusitis Hypothyroid [facility] HTN (hypertension) Surgical History Hx of tonsillectomy History of cholecystectomy H/O colonoscopy History of hysterectomy still has ovaries H/O thyroidectomy Family History Father Cancer thyroid Hypertension Mother Cancer vulva Hypertension Heart attack Social History Smoking Status: Current every day smoker tobacco type: e-cigarettes alcohol intake: current alcohol intake frequency: a few times a month substance use type: denies use current occupational status: employed Travel in the last 8 weeks: Inside the [place] household members: spouse marital status: number of children: 2 Other Medical History Have you received the Flu Vaccine for this season: No Have you received the Pneumonia Vaccine: No <SHANTANU Lopez - Last Filed: 03/19/24 23:08> ROS Obtained: Yes Systems reviewed as appropriate & no additional complaints except as documented Physical Exam <SHANTANU Lopez - Last Filed: 03/19/24 23:08> General General appearance: alert and in no apparent distress Respiratory Respiratory exam: Present normal lung sounds bilaterally Cardiovascular Cardiovascular exam: Present regular rate Neurological Exam Neurological exam: Present alert and oriented X3 Medical Decision Making <SHANTANU Lopez - Last Filed: 03/19/24 23:08> Medical Records Medical records reviewed: Yes I reviewed the patient's medical records. Screening: Per USPSTF and CDC recommendations, given the prevalence of disease in our region, it is our hospital?s policy to screen for HIV and viral Hepatitis for all patients aged 18 and over and those with ongoing risk factors. Aman Inquiry Pt receiving controlled substance: No Vital Signs: 03/19/24 20:46 03/19/24 21:31 03/19/24 22:00 Temperature 97.9 F Temperature Source Oral Pulse Rate 62 Pulse Rate [Left] 80 Respiratory Rate 17 12 12 Blood Pressure 120/71 115/73 Blood Pressure [Right Radial Artery] 149/95 H Blood Pressure Mean [Right Radial Artery] 113 02 Sat by Pulse Oximetry 100 97 99 Oxygen Delivery Method Room Air 03/19/24 23:35 Temperature 97.9 F Temperature Source Oral Pulse Rate 57 L Pulse Rate [Left] Respiratory Rate 15 Blood Pressure 123/76 Blood Pressure [Right Radial Artery] Blood Pressure Mean [Right Radial Artery] 02 Sat by Pulse Oximetry Oxygen Delivery Method Room Air Lab Data Lab results reviewed: Yes I reviewed the patient's lab results. Lab Results 03/19/24 20:48: WBC 7.4, RBC 4.56, Hgb 13.1, Hct 39.0, MCV 85.5, MCH 28.7, MCHC 33.5, RDW 13.7, Plt Count 324, MPV 8.2, Neut % (Auto) 51.8, Lymph % (Auto) 39.8, Will % (Auto) 5.7, Eos % (Auto) 1.3, Baso % (Auto) 1.4, Neut # (Auto) 3.9, Lymph # (Auto) 3.0, Will # (Auto) 0.4, Eos # (Auto) 0.1, Baso # (Auto) 0.1, Sodium 137, Potassium 3.6, Chloride 100, Carbon Dioxide 31 H, Anion Gap 9.6, BUN 22 H, Creatinine 0.60, Estimated Creat Clear 126, Estimated GFR 106, Est GFR ( Amer) 129, Glucose 113 H, Calcium 9.1, Magnesium 1.8, TSH 2.54, Free T4 Index 3.8 L, Thyroxine (T4) 12.3 H, T3 Uptake 31, HIV 1&2 Antibody Rapid Nonreactive 03/19/24 20:48 03/19/24 20:48 Orders (Tests/Meds): ED MEDICATIONS Discontinued Medications Generic Name Dose Route Start Last Admin Trade Name Freq PRN Reason Stop Dose Admin Dexamethasone Sodium Phosphate 10 mg 03/19/24 21:56 03/19/24 22:07 Dexamethasone 4mg/Ml 5ml Mdv IV 03/19/24 21:57 10 mg ONCE ONE Administration Iopamidol 80 ml 03/19/24 22:49 03/19/24 22:50 Iopamidol-370 (76%);100ml Bottle IV 03/19/24 22:50 80 ml ONCE ONE Administration Meclizine HCl 25 mg 03/19/24 21:56 03/19/24 22:05 Meclizine 25mg Tablet PO 03/19/24 21:57 25 mg ONCE ONE Administration Sodium Chloride 50 ml 03/19/24 22:49 03/19/24 22:50 0.9 % Sodium Chloride 50 Ml Vial IV 03/19/24 22:50 50 ml ONCE ONE Administration Sodium Chloride 10 ml 03/19/24 22:49 03/19/24 22:50 Sodium Chloride 0.9% 10ml Syr (Rad Only) IV 03/19/24 22:50 10 ml ONCE ONE Administration ORDERS Category Date Time Status CT angio head Stat Cat Scan 03/19/24 21:[address] angio neck Stat Cat Scan 03/19/24 21:[address] head/brain wo con Stat Cat Scan 03/19/24 21:58 Completed BMP [Basic Metabolic Panel] Stat Lab 03/19/24 20:48 Completed CBC w/Auto Diff [Complete Blood Count Auto Diff] Stat Lab 03/19/24 20:48 Completed HIV (1&2) Antibody Rapid Stat Lab 03/19/24 20:48 Completed Hep C Ab with Reflex to RNA Stat Lab 03/19/24 20:48 Received Magnesium Stat Lab 03/19/24 20:48 Completed Thyroid Panel Stat Lab 03/19/24 20:48 Completed Medical Decision Narrative: In summary patient is a 48-year-old female who presents to the emergency department for evaluation of dizziness palpitations and paresthesias. Patient is hemodynamically stable upon arrival, afebrile. Physical exam is unremarkable nonfocal including Regine Coma Score 15 no nystagmus no nuchal rigidity no focal neurologic deficits. It is of note patient is not experiencing any of the symptoms currently as they abated prior to evaluation in the ER.. Differential diagnosis includes vertiginous symptoms versus panic attack versus central neurologic cause etc. Initial workup will be conducted with hematologic labs CT scan of the head without contrast CTA of the head and neck. Initial interventions include Decadron and meclizine. Initial workup shows that her hematologic labs are nonactionable and nonconcerning and my informal interpretation of her CT imaging of her head and neck shows no acute processes prior to radiology read. Given that patient is had no recurrence and remains neurovascularly intact with a Regine Coma Score 15. Patient is appropriate for discharge with recommendations to continue her follow-up with ENT as scheduled and neurology arranged by her PCP. <Michelle Agee, DO - Last Filed: 03/19/24 22:47> Vital Signs: 03/19/24 20:46 03/19/24 21:31 03/19/24 22:00 Temperature 97.9 F Temperature Source Oral Pulse Rate 62 Pulse Rate [Left] 80 Respiratory Rate 17 12 12 Blood Pressure 120/71 115/73 Blood Pressure [Right Radial Artery] 149/95 H Blood Pressure Mean [Right Radial Artery] 113 02 Sat by Pulse Oximetry 100 97 99 Oxygen Delivery Method Room Air 03/19/24 23:35 Temperature 97.9 F Temperature Source Oral Pulse Rate 57 L Pulse Rate [Left] Respiratory Rate 15 Blood Pressure 123/76 Blood Pressure [Right Radial Artery] Blood Pressure Mean [Right Radial Artery] 02 Sat by Pulse Oximetry Oxygen Delivery Method Room Air Lab Data Lab Results 03/19/24 20:48: WBC 7.4, RBC 4.56, Hgb 13.1, Hct 39.0, MCV 85.5, MCH 28.7, MCHC 33.5, RDW 13.7, Plt Count 324, MPV 8.2, Neut % (Auto) 51.8, Lymph % (Auto) 39.8, Will % (Auto) 5.7, Eos % (Auto) 1.3, Baso % (Auto) 1.4, Neut # (Auto) 3.9, Lymph # (Auto) 3.0, Will # (Auto) 0.4, Eos # (Auto) 0.1, Baso # (Auto) 0.1, Sodium 137, Potassium 3.6, Chloride 100, Carbon Dioxide 31 H, Anion Gap 9.6, BUN 22 H, Creatinine 0.60, Estimated Creat Clear 126, Estimated GFR 106, Est GFR ( Amer) 129, Glucose 113 H, Calcium 9.1, Magnesium 1.8, TSH 2.54, Free T4 Index 3.8 L, Thyroxine (T4) 12.3 H, T3 Uptake 31, HIV 1&2 Antibody Rapid Nonreactive Orders (Tests/Meds): ED MEDICATIONS Discontinued Medications Generic Name Dose Route Start Last Admin Trade Name Freq PRN Reason Stop Dose Admin Dexamethasone Sodium Phosphate 10 mg 03/19/24 21:56 03/19/24 22:07 Dexamethasone 4mg/Ml 5ml Mdv IV 03/19/24 21:57 10 mg ONCE ONE Administration Iopamidol 80 ml 03/19/24 22:49 03/19/24 22:50 Iopamidol-370 (76%);100ml Bottle IV 03/19/24 22:50 80 ml ONCE ONE Administration Meclizine HCl 25 mg 03/19/24 21:56 03/19/24 22:05 Meclizine 25mg Tablet PO 03/19/24 21:57 25 mg ONCE ONE Administration Sodium Chloride 50 ml 03/19/24 22:49 03/19/24 22:50 0.9 % Sodium Chloride 50 Ml Vial IV 03/19/24 22:50 50 ml ONCE ONE Administration Sodium Chloride 10 ml 03/19/24 22:49 03/19/24 22:50 Sodium Chloride 0.9% 10ml Syr (Rad Only) IV 03/19/24 22:50 10 ml ONCE ONE Administration ORDERS Category Date Time Status CT angio head Stat Cat Scan 03/19/24 21:[address] angio neck Stat Cat Scan 03/19/24 21:[address] head/brain wo con Stat Cat Scan 03/19/24 21:58 Completed BMP [Basic Metabolic Panel] Stat Lab 03/19/24 20:48 Completed CBC w/Auto Diff [Complete Blood Count Auto Diff] Stat Lab 03/19/24 20:48 Completed HIV (1&2) Antibody Rapid Stat Lab 03/19/24 20:48 Completed Hep C Ab with Reflex to RNA Stat Lab 03/19/24 20:48 Received Magnesium Stat Lab 03/19/24 20:48 Completed Thyroid Panel Stat Lab 03/19/24 20:48 Completed ECG Data Tracing #1: I reviewed this ECG and interpreted as documented below: Normal sinus rhythm with a ventricular rate of [address] changes concerning for ischemia. Normal axis and intervals ECG initial impression date: 03/19/24 ECG initial impression time: 21:00 Critical Care <SHANTANU Lopez - Last Filed: 03/19/24 23:08> Critical Care Time Critical Care Time: No
[2024-03-19 21:31] VITALS: BP 120/71; PULSE 62; RESP 12; O2SAT 97
--- NOTE | 2024-03-19 21:57 | CT_ITS ---
PROCEDURE INFORMATION: Exam: CTA Head With Contrast, Arteriography Exam date and time: 03/19/2024 10:43 PM Age: 48 years old Clinical indication: Stroke-like symptoms; Dizziness/giddiness TECHNIQUE: Imaging protocol: Computed tomographic angiography of the head with contrast. Exam focused on the arteries. 3D rendering (Not supervised by radiologist): MIP and/or 3D reconstructed images were created by the technologist. Radiation optimization: All CT scans at this facility use at least one of these dose optimization techniques: automated exposure control; mA and/or kV adjustment per patient size (includes targeted exams where dose is matched to clinical indication); or iterative reconstruction. Contrast material: ISOVUE; Contrast volume: 80 ml; Contrast route: INTRAVENOUS (IV); COMPARISON: CT HEAD/BRAIN WO CON 03/19/2024 10:41 PM FINDINGS: ANTERIOR CIRCULATION: Right internal carotid artery: Intracranial segment is patent with no significant stenosis. No aneurysm. Right middle cerebral artery: No occlusion or significant stenosis. No aneurysm. Right anterior cerebral artery: No occlusion or significant stenosis. No aneurysm. Left internal carotid artery: Intracranial segment is patent with no significant stenosis. No aneurysm. Left middle cerebral artery: No occlusion or significant stenosis. No aneurysm. Left anterior cerebral artery: No occlusion or significant stenosis. No aneurysm. POSTERIOR CIRCULATION: Right vertebral artery: No occlusion or significant stenosis. No aneurysm. Left vertebral artery: No occlusion or significant stenosis. No aneurysm. Basilar artery: No occlusion or significant stenosis. No aneurysm. Right posterior cerebral artery: No occlusion or significant stenosis. No aneurysm. Left posterior cerebral artery: No occlusion or significant stenosis. No aneurysm. Brain: No definite mass, mass effect, or midline shift. Cerebral ventricles: No ventriculomegaly. Bones/joints: Unremarkable. No acute fracture. Soft tissues: Unremarkable. IMPRESSION: No large vessel stenosis or occlusion.
--- NOTE | 2024-03-19 21:57 | CT_ITS ---
PROCEDURE INFORMATION: Exam: CTA Neck With Contrast Exam date and time: 03/19/2024 10:43 PM Age: 48 years old Clinical indication: Stroke-like symptoms; Dizziness/giddiness TECHNIQUE: Imaging protocol: Computed tomographic angiography of the neck with contrast. Exam focused on the cervical segments of the vasculature. 3D rendering (Not supervised by radiologist): MIP and/or 3D reconstructed images were created by the technologist. Radiation optimization: All CT scans at this facility use at least one of these dose optimization techniques: automated exposure control; mA and/or kV adjustment per patient size (includes targeted exams where dose is matched to clinical indication); or iterative reconstruction. Contrast material: ISOVUE; Contrast volume: 80 ml; Contrast route: INTRAVENOUS (IV); COMPARISON: CT ANGIO HEAD 03/19/2024 10:43 PM FINDINGS: Right common carotid artery: No stenosis. No dissection or occlusion. Right internal carotid artery: No stenosis of the extracranial segment. No dissection or occlusion. Right external carotid artery: No occlusion or stenosis of the origin. Left common carotid artery: No stenosis. No dissection or occlusion. Left internal carotid artery: No stenosis of the extracranial segment. No dissection or occlusion. Left external carotid artery: No occlusion or stenosis of the origin. Right vertebral artery: No stenosis. No dissection or occlusion. Left vertebral artery: No stenosis. No dissection or occlusion. Soft tissues: Normal. No significant soft tissue swelling. Bones/joints: No acute fracture. IMPRESSION: No stenosis or occlusion. REFERENCES: NASCET CRITERIA. The degree of stenosis in the cervical segment of the internal carotid artery is based on NASCET criteria. Normal is no stenosis. Mild is less than 50% stenosis. Moderate is 50-69% stenosis. Severe is 70% to 99% stenosis. Total occlusion is no detectable patent lumen.
--- NOTE | 2024-03-19 21:58 | CT_ITS ---
PROCEDURE INFORMATION: Exam: CT Head Without Contrast Exam date and time: 03/19/2024 10:41 PM Age: 48 years old Clinical indication: Stroke-like symptoms; Dizziness/giddiness TECHNIQUE: Imaging protocol: Computed tomography of the head without contrast. Radiation optimization: All CT scans at this facility use at least one of these dose optimization techniques: automated exposure control; mA and/or kV adjustment per patient size (includes targeted exams where dose is matched to clinical indication); or iterative reconstruction. Other technique: STROKE PROTOCOL was implemented. COMPARISON: CT HEAD/BRAIN WO CON 03/19/2024 10:41 PM FINDINGS: Brain: Normal. No hemorrhage. Unremarkable white matter. No mass effect. Cerebral ventricles: No ventriculomegaly. Paranasal sinuses: Visualized sinuses are unremarkable. No fluid levels. Mastoid air cells: Visualized mastoid air cells are well aerated. Bones: Unremarkable. No acute fracture. Soft tissues: Unremarkable. IMPRESSION: No acute intracranial abnormality. ASSESSMENT: ASPECTS ([place] Stroke Program Early CT Score) is 10.
[2024-03-19 22:00] VITALS: BP 115/73; RESP 12; O2SAT 99
[2024-03-19] MEDS: MECLIZINE 25MG TABLET 25 MG PO (22:05)
[2024-03-19] MEDS: DEXAMETHASONE 4MG/ML 5ML MDV 10 MG IV (22:07)
[2024-03-19 22:20] LABS: HIV (1&2) Antibody Rapid NONREACTIVE (NONREACTIVE)
[2024-03-19 22:23] LABS: Basophils # 0.1 K/mm3 (0-0.2); Basophils % 1.4 % (0.1-2.0); Eosinophils # 0.1 K/mm3 (0.0-0.4); Eosinophils % 1.3 % (0.1-12.0); Hemoglobin 13.1 g/dL (12.2-16.2); Lymphocytes % 39.8 % (10-50); Mean Corpuscular HGB Conc 33.5 g/dL (31.8-35.4); Mean Corpuscular Hemoglobin 28.7 pg (27.0-31.2); Mean Corpuscular Volume 85.5 fl (81-99); Mean Platelet Volume 8.2 fl (7.4-10.4); Monocytes # 0.4 K/mm3 (0.1-1.0); Monocytes % 5.7 % (1.7-9.3); Neutrophils # 3.9 K/mm3 (1.8-7.8); Neutrophils % 51.8 % (37.0-80.0); Platelet Count 324 K/mm3 (142-424); Red Blood Count 4.56 M/mm3 (4.20-5.40); Red Cell Distribution Width 13.7 % (11.5-17.5); White Blood Count 7.4 K/mm3 (4.8-10.8)
[2024-03-19 22:29] LABS: Anion Gap 9.6 mEq/L (5-15); Blood Urea Nitrogen 22 mg/dl (7-17); Calcium 9.1 mg/dl (8.4-10.2); Carbon Dioxide 31 mmol/L (22.0-30.0); Chloride 100 mmol/L (98-107); Creatinine Clearance Estimated 126 mL/min (50-200); Estimated Glomerular Filt Rate 106 ml/min (>60); GFR (African American) 129 ML/MIN (>60); Glucose 113 mg/dl (74-100); Magnesium 1.8 mg/dl (1.6-2.3); Potassium 3.6 mmoL/L (3.5-5.1); Sodium 137 mmol/L (136-145)
[2024-03-19 22:46] LABS: Free Thyroxine Index 3.8 ug/dL (5.93-13.13); T4 (Thyroxine) 12.3 ug/dl (5.53-11.0); Triiodothryronine (T3) Uptake 31 % (23.5-40.5)
[2024-03-19] MEDS: 0.9 % SODIUM CHLORIDE 50 ML VIAL IV (22:50)
[2024-03-19] MEDS: IOPAMIDOL-370 (76%);100ML BOTTLE 80 ML IV (22:50)
[2024-03-19] MEDS: SODIUM CHLORIDE 0.9% 10ML SYR (RAD ONLY) 10 ML IV (22:50)
[2024-03-19 23:00] LABS: Thyroid Stimulating Hormone 2.54 uIU/mL (0.465-4.68)
[2024-03-19 23:35] VITALS: BP 123/76; PULSE 57; RESP 15; TEMP 36.6; O2SAT 97
[2024-03-21 05:14] LABS: HCV Ab Non Reactive (Non Reactive)
== END 2024-03-19 23:51 | disposition home or self-care (01) ==
PROVIDERS: Physician Assistant; Emergency Provider Emergency Medicine; PCP Nurse Practitioner Family
DX: R53.1 Weakness (principal); R11.0 Nausea; R00.2 Palpitations; R42 Dizziness and giddiness; R20.2 Paresthesia of skin
CPT/HCPCS: 70450; 70496; 70498; 80048; 83735; 84436; 84443; 84479; 85025; 86803; 87389; 93005; 96374; 99283; J1100; Q9967

== ENCOUNTER 2024-05-01 15:34 | Outpatient (CLI) | payer BC, OTHER, SELFPAY ==
[2024-05-01 16:10] LABS: Chloride 100 mmol/L (98-107); Potassium 3.4 mmoL/L (3.5-5.1); Sodium 139 mmol/L (136-145)
[2024-05-01 16:13] LABS: Alanine Aminotransferase 28 U/L (12-78); Albumin/Globulin Ratio 2.1 (1.1-1.8); Alkaline Phosphatase 73 U/L (38-126); Anion Gap 13.4 mEq/L (5-15); Aspartate Amino Transferase 29 U/L (14-36); Bilirubin,Total 0.5 mg/dl (0.2-1.3); Blood Urea Nitrogen 24 mg/dl (7-17); Calcium 9.1 mg/dl (8.4-10.2); Carbon Dioxide 29 mmol/L (22.0-30.0); Estimated Glomerular Filt Rate 89 ml/min (>60); GFR (African American) 108 ML/MIN (>60); Globulin 2.4 g/dL (1.3-3.2); Glucose 142 mg/dl (74-100); Total Protein,Serum 7.4 g/dl (6.3-8.2)
== END 2024-05-01 23:59 | disposition home or self-care (01) ==
LOC: LAB 15:35
PROVIDERS: PCP Nurse Practitioner Family; Visit Provider Obstetrics & Gynecology
DX: N95.1 Menopausal and female climacteric states (principal)
CPT/HCPCS: 36415; 80053

== ENCOUNTER 2024-06-13 16:43 | Outpatient (CLI) | payer BC, OTHER, SELFPAY ==
[2024-06-13 16:38] LABS: Coronavirus 19, PCR Not Detected (NotDetected); Human Rhinovirus Not Detected (NotDetected); Influenza A, PCR Not Detected (NotDetected); Influenza B, PCR Not Detected (NotDetected); Respiratory Syncytial Virus Not Detected (NotDetected)
== END 2024-06-13 23:59 | disposition home or self-care (01) ==
LOC: LAB.DROPOF 16:43
PROVIDERS: PCP Internal Medicine; Visit Provider Internal Medicine
DX: R05.9 Cough, unspecified (principal); R09.81 Nasal congestion; R51.9 Headache, unspecified; J34.89 Other specified disorders of nose and nasal sinuses; F17.200 Nicotine dependence, unspecified, uncomplicated
CPT/HCPCS: 87631

== ENCOUNTER 2024-06-28 12:53 | Outpatient (CLI) | payer BC, OTHER, SELFPAY ==
--- NOTE | 2024-06-28 12:54 | US_ITS ---
PROCEDURE INFORMATION: Exam: US Left Breast, Complete Exam date and time: 06/28/2024 12:59 PM Age: 49 years old Clinical indication: Follow-up for finding in the left breast 11 o'clock axis. TECHNIQUE: Imaging protocol: Complete ultrasound of all four quadrants of the left breast and the retroareolar regions, including ultrasound of the axilla when performed. COMPARISON: US BREAST LT COMPLETE 12/05/2023 9:54 AM FINDINGS: ULTRASOUND: Breast ultrasound findings: Ultrasound the left breast is performed. There are scattered minimal cystic changes. In the 11 o'clock position, 7 cm from the nipple there is a complicated cyst measuring 0.5 x 0.5 x 0.4 cm, this is not significantly changed since 07/20/2023. No shadowing or distortion. There is no new or suspicious mass. No axillary adenopathy. IMPRESSION: 1. Cystic structure in the left breast 11 o'clock axis, 7 cm from the nipple is unchanged since 07/20/2023. Follow-up ultrasound in 12 months is recommended. 2. No patient is due for a bilateral mammogram in July of 2024. ASSESSMENT: BI-RADS Category 3: Probably benign.
== END 2024-06-28 23:59 | disposition home or self-care (01) ==
LOC: RAD 12:54
PROVIDERS: PCP Internal Medicine; Visit Provider Surgery
DX: N63.22 Unspecified lump in the left breast, upper inner quadrant (principal)
CPT/HCPCS: 76641

== ENCOUNTER 2024-07-22 07:53 | Outpatient (CLI) | payer BC, OTHER, SELFPAY ==
--- NOTE | 2024-07-22 07:55 | MM_ITS ---
PROCEDURE INFORMATION: Exam: MG Bilateral Screening 3D Mammography Exam date and time: 07/22/2024 8:09 AM Age: 49 years old Clinical indication: Screening examination. Maternal aunts and a maternal cousin had breast cancer. TECHNIQUE: Imaging protocol: Bilateral Screening tomosynthesis and 2D mammography including computer-aided detection (CAD) when performed. COMPARISON: 1. MG MM DIG MAMM DX UNILAT LT CAD 12/18/2023 1:54 PM 2. MG MM DIG MAMM DX UNILAT LT CAD 07/20/2023 3:14 PM 3. MG MM DIG SCREENING MAMM BI W/CAD 07/17/2023 7:51 AM 4. MG MM DIG SCREENING MAMM BI W/CAD 07/01/2022 7:57 AM FINDINGS: MAMMOGRAPHY: Breast composition: There are scattered areas of fibroglandular density. Mass: None. Architectural distortion: None. Calcifications: No suspicious calcifications. Asymmetric density: None. Skin thickening: None. Axillary adenopathy: None. IMPRESSION: No mammographic evidence of malignancy. Annual screening is recommended unless otherwise clinically indicated. ASSESSMENT: BI-RADS Category 1: Negative.
== END 2024-07-22 23:59 | disposition home or self-care (01) ==
LOC: RAD 07:54
PROVIDERS: PCP Internal Medicine; Visit Provider Surgery
DX: Z12.31 Encounter for screening mammogram for malignant neoplasm of breast (principal)
CPT/HCPCS: 77063; 77067

== ENCOUNTER 2024-08-02 09:23 | Outpatient (CLI) | payer BC, OTHER, SELFPAY ==
--- NOTE | 2024-08-02 09:24 | US_ITS ---
FINAL REPORT CLINICAL HISTORY: abnormal breast US -- LT BREAST FNA -- DR BECKY BEST FINDINGS: ULTRASOUND-GUIDED LEFT BREAST ASPIRATION HISTORY: Left breast nodule TECHNIQUE: The left breast was prepped in a routine sterile fashion and locally anesthetized with 1% lidocaine. Lesion of interest was identified at 11:00 corresponding to a complex cystic-appearing lesion. An 18-gauge needle was directed into the lesion of interest. Aspiration was performed which resulted in complete aspiration of the lesion with lesion no longer evident. Less than 1 mL of aspirate was submitted in designated cytology fluid for cytologic evaluation. IMPRESSION: 1. Technically successful image guided aspiration of subcentimeter cyst of the left breast with imaging characteristics compatible with a benign cyst 2. Cytology pending Authenticated and ERN
== END 2024-08-02 23:59 | disposition home or self-care (01) ==
LOC: RAD 09:24
PROVIDERS: PCP Internal Medicine; Visit Provider Surgery
DX: R92.8 Other abnormal and inconclusive findings on diagnostic imaging of breast (principal)
CPT/HCPCS: 19083

== ENCOUNTER 2024-10-08 15:10 | Outpatient (CLI) | payer BC, OTHER, SELFPAY ==
[2024-10-08 14:17] LABS: Coronavirus 19, PCR Not Detected (NotDetected); Human Rhinovirus Not Detected (NotDetected); Influenza A, PCR Not Detected (NotDetected); Influenza B, PCR Not Detected (NotDetected); Respiratory Syncytial Virus Not Detected (NotDetected)
--- OUTSIDE RECORDS SUMMARY | 2024-10-08 15:12 | XMS_ITS | Continuity of Care Document ---
Author Organization [facility], GASTRO SB Address [address] [address] Care Team Providers Care Housecleaner Floor Name Role Phone THOMAS ADDISON Primary Care Provider [phone] Assessment No assessment recorded. Plan of Treatment Reminders Order Date Submit Date Provider Last Modified By Organization Details Last Modified Time Details Appointments ULTRASO UND 2025 08:30A M ULTRASOUND Not available Not available Not available RECHECK 2025 08:15A M CAIN SHARMA MD Not available Not available Not available RECHECK 2025 08:15A M VIPUL SERRANO APRN Not available Not available Not available Lab None recorde d. Referral None recorde d. Procedures None recorde d. Surgeries None recorde d. Imaging None recorde d. Medication Orders None recorde d. Patient TargetsNo targets recorded. Patient Instructions Encounter Date Encounter Id Patient Instructions Last Modified By Organization Details Last Modified Time 09/16/2024 [id number] Note to Patient: The 21st Century Cures Act makes medical notes like these available to patients in the interest of transparency. However, be advised this is a medical document. It is intended as peer to peer communication. It is written in medical language and may contain abbreviations or verbiage that are unfamiliar. It may appear blunt or direct. Medical documentation is intended to carry relevant information, facts as evident, and the clinical opinion of the practitioner. I spent 22 minutes on this date of service. This time includes time spent by me in the following activities: Preparing for the visit, counseling, and educating the patient/family/car egiver, ordering medications tests or procedures and documenting information on the medical record. Pt verbalized understanding of the disease process. Pt to follow plan of care. Education provided. Not available 09/16/2024 08:14:49 I have discussed the situation, differential diagnosis, and recommendation with the patient. Pt. states understanding and wishes to proceed as recommended. Not available 09/16/2024 08:14:55 Reason for Referral None Reported. Problems No Known Problems Procedures Surgical History Date Name Laterality Status Provider Name and Address Organization Details Recorded Time 04/30/20 24 Audiogram completed VAHE ALY, AUD [address] [place], [address], [facility] 04/30/2024 08:54:13 04/30/20 24 Laryngoscopy Flex completed ERIK LAUREN APRN [address] [place], [address], [facility] 04/30/2024 08:52:08 03/26/20 24 Tony-Hallpike completed ERIK LAUREN APRN [address] [place], [address], [facility] 03/26/2024 12:08:09 08/16/19 19 thyroidectomy completed Laura Erickson [facility] 08/23/2018 11:30:41 07/26/19 19 Review of Med Recs/Compl forms completed Amy Corral [facility] 07/26/2018 10:29:42 Hysterectomy/revi se vagina completed Caren Sheridan [facility] 07/26/2018 09:36:04 Cervical laminoplsty 2/> seg completed RON ROWELL MD [address] [place], [address], [facility] 08/16/2018 09:37:08 Imaging Results None recorded. Procedure Notes None recorded. Medical Equipment None Reported. Allergies No known drug allergies Medications Name Sig Start Date Stop Date Status Note LastModified by Organization Details LastModified Time cyclobenzap rine 10 mg tablet As needed 07/26 completed Not Available Not Available Not Available amoxicillin 500 mg capsule 03/26 completed Not Available Not Available Not Available levothyroxi ne 175 mcg tablet Take 1 tablet every day by oral route in the morning for 90 days. 11/13 completed Not Available Not Available Not Available promethazin e-DM 6.25 mg-15 mg/5 mL oral syrup 03/26 completed Not Available Not Available Not Available levothyroxi ne 137 mcg tablet Take 1 tablet every day by oral route in the morning for 30 days. 2024 active Not Available Not Available Not Avai lable triazolam 0.25 mg tablet 03/26 completed Not Available Not Available Not Available azithromyci n 250 mg tablet 08/20 completed Not Available Not Available Not Available tizanidine 4 mg tablet 03/26 completed Not Available Not Available Not Available fluconazole 150 mg tablet 03/26 completed Not Available Not Available Not Available prednisone 20 mg tablet 03/26 completed Not Available Not Available Not Available estradiol 0.05 mg/24 hr semiweekly transdermal patch active Not Available Not Available Not Available sulfamethox azole 800 mg-trimetho prim 160 mg tablet 08/20 completed Not Available Not Available Not Available omeprazole 40 mg capsule,del ayed release 1 capsule QD 30 mins before breakfast active Not Available Not Available No t Available tramadol 50 mg tablet 07/26 completed Not Available Not Available Not Available triamterene 37.5 mg-hydrochl orothiazide 25 mg capsule 07/26 completed Not Available Not Available Not Available levothyroxi ne 100 mcg tablet one tablet seven days a week 08/27 completed Not Available Not Available Not Available propranolol 10 mg tablet active Not Available Not Available Not Available amoxicillin 875 mg tablet 08/14 completed Not Available Not Available Not Available estradiol 1 mg tablet 03/26 completed Not Available Not Available Not Available meclizine 25 mg tablet 1 tablet q12h PRN for vertigo 2024 active Not Available Not Available Not Avai lable hydrocodone 7.5 mg-acetamin ophen 325 mg tablet 08/23 completed Not Available Not Available Not Available levothyroxi ne 125 mcg tablet TAKE 1 TABLET BY MOUTH EVERY MORNING 11/01 completed Not Available Not Available Not Available buspirone 10 mg tablet active Not Available Not Available Not Available levothyroxi ne 150 mcg tablet Take 1 tablet every day by oral route in the morning for 30 days. 08/14 completed Not Available Not Available Not Available progesteron e micronized 200 mg capsule active Not Available Not Available Not Available hydrocodone -homatropin e 5 mg-1.5 mg/5 mL oral solution 07/26 completed Not Available Not Available Not Available triamterene 37.5 mg-hydrochl orothiazide 25 mg tablet active Not Available Not Available Not Available hydrochloro thiazide 25 mg tablet 08/27 completed Not Available Not Available Not Available mupirocin 2 % topical ointment 08/20 completed Not Available Not Available Not Available methylpredn isolone 4 mg tablets in a dose pack Take as directed PRN with vertigo flare active Not Available Not Available No t Available albuterol sulfate HFA 90 mcg/actuati on aerosol inhaler active Not Available Not Available Not Available ondansetron 4 mg disintegrat ing tablet 08/27 completed Not Available Not Available Not Available amoxicillin 875 mg-potassiu m clavulanate 125 mg tablet 03/26 completed Not Available Not Available Not Available lisinopril- hydrochloro thiazide Daily 07/26 completed Frequ ency: daily ;Medi catio n Descr iptio n: hydro chlor othia zide- lisin opril ; Dosag e:1; Route :oral ; refil ls:0 Not Available Not Available Not Available tramadol As needed 07/26 completed Frequ ency: prn;M edica tion Descr iptio n: trama dol; Route :oral ; refil ls:0 Not Available Not Available Not Available prednisone 08/23 completed Not Available Not Available Not Available Prilosec Daily 07/26 completed Frequ ency: daily ;Medi catio n Descr iptio n: omepr azole ; Dosag e:1; Route :oral ; refil ls:0; Quant ity:3 0 Not Available Not Available Not Available multivitami n 03/26 completed Not Available Not Available Not Available olopatadine 0.2 % eye drops 08/20 completed Not Available Not Available Not Available Calcium with Vit D3 600 mg (as carbonate)- 12.5 mcg (500 unit) capsule Take by oral route. 03/26 completed Not Available Not Available Not Available Plenvu 140 gram-9 gram-5.2 gram powder packs Take as directed. [employer]AY CARDBIN: [id number] PCN: [id number]: [id number] ID: [id number] 09/16 completed Not Available Not Available Not Available Meeta 0.025 mg/24 hr transdermal patch active Not Available Not Available Not Available Meeta 0.075 mg/24 hr transdermal patch active Not Available Not Available Not Available QuickVue At-Home COVID-19 Test kit active Not Available Not Available Not Available Vitals Date Recorded Body height Body mass index (BMI) Body weight Respiratory rate Heart rate Oxygen saturation Oxygen saturation in Arterial blood by Pulse oximetry Systolic blood pressure Diastolic blood pressure Provider Name and Address Organization Details Last Updated DateTime 5 160.02 cm 27.5 kg/m2 51434.9 2 g 16 /min 78 /min 98 % 98 % 120 mm[Hg] 70 mm[Hg] [facility] 08:03:22 Social History Question Answer Notes LastModified by Organizat ion Details LastModified Time Tobacco Smoking Status Former [facility] 09:37:28 What Is Your Level Of Alcohol Consumption? Occasional Information not available 07/26/2018 How Much Tobacco Do You Chew? None [email or web address] Information not available 11/16/2018 What Was The Date Of Your Most Recent Tobacco Screening? 11/16/2018 Information not available 07/30/2019 How Much Tobacco Do You Smoke? No [email or web address] Information not available 11/16/2018 How Many Years Have You Smoked Tobacco? 20 [email or web address] Information not available 07/26/2018 Sex: Female Functional Status None recorded. Mental Status None recorded. Family History Relationship Description Onset Age of this Age Resolved Age Notes LastModified by Organization Details LastModified Time Mother Family history of malignant neoplasm [email or web address] Not available 07/26 09:35:17 Mother Hypertensive disorder [email or web address] Not available 07/26 09:35:52 Father Family history of malignant neoplasm thyroi d [email or web address] Not available 07/26/2018 09:35:28 Father Heart disease [email or web address] Not available 07/26 09:35:34 Father Hypertensive disorder [email or web address] Not available 07/26 09:35:52 Medical History Condition Response Coronary Artery Disease N Other N Kidney Stones N Hyperthyroidism N Blood Transfusion Y Heart Arrhythmia N Emphysema N Esophagus/swallowing troubles Y COPD N Depression N Pneumonia N Venereal Disease N Persistent cough or throat clearing > 3 weeks N Anxiety Disorder N Hemorrhoids N Arthritis N Blood Clot N Acid Reflux (GERD) Y Cancer Y Stroke N Hoarseness N Polio N Snoring problems N Headaches Y Kidney Disease N Inflammatory bowel disease N Heart Problems N Mental handicap N Ear or Hearing Problems Y Whooping Cough N Gallbladder Disease N Migraines N Kidney or Bladder Problems N Goiter N Smallpox N Pancreatic disease N Ulcers N Rheumatic Fever N Bleeding Disorder N Tuberculosis N AIDS/HIV N Back Problems N Asthma Y Sleep Disorder N GERD/Reflux Y Hepatitis N Cirrhosis N Chicken Pox Y Thyroid Disease N Colon Cancer N Hernia Y Hypothyroidism N Lung Disease N Glaucoma N Measles N Difficulty Swallowing Y Diverticulitis/Diverticulosis N Anesthesia Complications N Varicose Veins N Hearing Loss N Serious Illness or Injuries N Mononucleosis Y Radiation Therapy N Bladder or Kidney Problems N Diphtheria N Alcohol Overuse/Alcohol Abuse N High Cholesterol N Liver Disease N Allergies/Hayfever N Mumps N Thyroid Problems Y GI Problems Y Anemia N Chest Pain N Immune System Disorder N Colon Polyps N Stomach trouble N Heart Attack ([place]) N Diabetes N Seizures/Epilepsy N Scarlet Fever N Heart Murmur N Hyperlipidemia N Eczema N Epilepsy/Seizures N Bronchitis N Heart Disease N Hypertension Y Gynecological HistoryNo gynecological history recorded. Obstetrics History GPAL:G 0 P 0 0 0 0 Immunizations Vaccine Type Date Status Note Provider Nam e and Address Organization Details Recorded Time COVID-19, mRNA, LNP-S, PF, 30 mcg/0.3 mL dose 03/01/2021 completed Niharika Roman [facility] 03/26/2024 10:55:21 COVID-19, mRNA, LNP-S, PF, 30 mcg/0.3 mL dose 03/22/2021 [facility] 10:55:21 Past Encounters Encounter ID Performer Location Encounter Start Date Encounter Closed Date Diagnosis/Indication Diagnosis SNOMED-CT Code Diagnosis ICD10 Code Diagnosis Note [id number] CAIN SHARMA MD ENDOCRINO [facility] [address] [place] [address] 08/19/2024 07:57:27 08/19/2024 08:49:28 History of malignant neoplasm of thyroid 546977497 Z85.850 1.3 cm right thyroid nodule and ultrasound and Biopsy suspicious for thyroid cancer. Total thyroidect rohith on 08/15/[address] Rowell. Pathology 1.2 cm right papillary thyroid cancer Unifocal Classic variant papillary thyroid cancer Negative margins No lymphatic or vascular invasion No extrathyro idal extension No lymph nodes samples Pathologic staging: pT1b, pNx,pMx Satge I MACIS 4.88 Low risk No radioactiv e iodine given Most recent thyroglobu olivier of 0.2 on 08/12/2024 up from 0.1 on 40 .2 unchanged from from 0.2 ng per mL from 0.3 ng per mL in the context of undetectab ly low thyroglobu olivier on 08/18/2021 Follow-up neck ultrasound today on 08/12/2024, images and report reviewed and discussed with patient which showed:Pre vious thyroidect rohith. Right thyroid bed tissue measuring 3 by 2 x 2 millimeter . Left thyroid bed tissue measuring 3 x 3 x 5 mm. Right cervical node measuring 9 x 8 x 3 mm, left cervical node measuring 7 x 5 x 3 mm. Provided patient with a hard copy of her recent thyroid ultrasound as well as thyroglobu olivier panel results since 2019 Continue to monitor clinically , by a repeat ultrasound and thyroglobu olivier panel before next visit after 1 year Postoperat amaury hypothyroidism 68783815 E89.0 Clinically denies any symptoms of exogenous hypothyroi dism TSH of 0.4 and free T4 of 1.58 on 5Co nfirmed adherence to her medication Continue current 137 ??g every a.m. patient was instructed on the appropriat e method of levothyrox in administra tion to be taken every a.m. on an empty stomach as new food, drinks or other medication s for at least 30 minutes. PPI and calcium -containin g preparatio ns is preferred to be given at least of her hours before or after levothyrox in therapy. 1 year follow-up TSH and free T4 before next visit Dysphagia 15196599 R13.1 0 Unlikely to be thyroid related given exam and ultrasound finding Known to have gastroesop hageal reflux as well as a hiatal herniaEGD tomorrow by Dr. Link Further evaluation and management per gastroente rology Patient verbalized understand ing and agreed with the above mentioned plan of care. [id number] Alethea Sandoval SURGERY SCHEDULE [address] [place] [address] 08/20/2024 06:43:00 08/20/2024 06:43:22 [id number] JEB LINK, DAIRY NUTRITION SPECIALIST [facility] [address] [facility], [address] [place] [address] 09/16/2024 07:56:20 09/16/2024 14:54:02 Dysphagia 97106263 R13.10 Resolved with EGD with dilation. States she is swallowing well and not having any issues. Did discuss her biopsy for LA grad A, biopsies otherwise normal. She does state that she has some gluten sensitivit y. Advised if it bothers her to avoid it. She is currently on omeprazole and doing well. Will follow-up in 1 year sooner if clinically indicated or desired by patient. Instructed 3-year follow-up for EGD with dilation sooner if needed. Screening for malignant neoplasm of colon 542470146 Z12.11 Screening colonoscop y was completed. 5- 10 years repeat or sooner if clinically indicated. History of malignant neoplasm of thyroid 710135402 Z85.850 History of polyp of colon 269330587 Z86.0100 Reported from previous exam outside of the [facility]. Health Concerns Section Related Observation LastModified by Organization Detai ls LastModified Time None Recorded Concern Status LastModified by Organization Details LastModified Time None Recorded Payers Encounter Date Sequence Insurance Name Policy Number Policy Hernandez Covered Member ID Hernandez Member ID Guarantor Name 09/16/2024 1 [place] [id number] Nuria Merchant [id number] Nuria Merchant Notes Date Note Type Note Provider Name and Address Organization Details Recorded Time 09/16/2024 text/html Ms. Yanelis duggan is a pleasant 49-year-old female here for review of pathology and follow-up post EGD:. She did have a dilation. States that her swallow is much better. No foods are sticking at this time. In postop was easier course than she had expected. We did discuss her pathology results as well as her procedures. She is currently on omeprazole 40 every morning before any food. States is going well and her gastritis has since resolved. No issues with swallowing at this time. And her stools have returned to normal. She notes that nothing was seen as far as a hiatal hernia during the procedure. She was concerned secondary to the fact that was seen on CT. Did discuss lifestyle modifications for GERD and benefits and risks of PPI. Does have a previous history of thyroid cancer. JEB LINK, DAIRY NUTRITION SPECIALIST [address] [place], [address], [place] [facility] 09/16/2024 08:19:46 OBGyn Episode No OBEpisode recorded.
== END 2024-10-08 23:59 | disposition home or self-care (01) ==
LOC: LAB.DROPOF 15:10
PROVIDERS: PCP Nurse Practitioner Family; Visit Provider Nurse Practitioner Family
DX: R05.9 Cough, unspecified (principal); R53.83 Other fatigue
CPT/HCPCS: 87631

== ENCOUNTER 2025-02-17 09:26 | Outpatient (CLI) | payer BC, OTHER, SELFPAY ==
--- OUTSIDE RECORDS SUMMARY | 2018-10-16 12:22 | XMS_ITS | Encounter Summary ---
[facility] [address] [place] [address] Care Team Providers Care Web Analytics Developer Name Role Phone Jonas Vigil MD Primary Care Provider + Encounter Details Date Type Department Care Team (Late st Contact Info) Description 10/16/2018 12:22 PM EDT Hospital Encounter [facility] PULMONARY & [facility]ITICAL CARE MEDICINE [address] [place] [phone] Social History Tobacco Use Types Packs/Day Years Used Date Smoking Tobacco: Former Cigarettes 0.5 25 0 07/13/1992 - 07/13/2017 Electronic Cigarette Smokeless Tobacco: Never Comments:Still use electroni c vape Alcohol Use Standard Drinks/Week Comments No 0 (1 standard drink = 0.6 oz pur e alcohol) AUDIT-C Answer Date Recorded Frequency of Alcohol Consumption Never 10/16/2018 Average Number of Drinks Not on file 019 Frequency of Binge Drinking Not on file 12/2018 Abuse Screen Answer Date Recorded Feels Unsafe at Home or Work/School no 05/13/2024 Feels Threatened by Someone no 07/2023 Does Anyone Try to Keep You From Having Contact with Others or Doing Things Outside Your Home? no 05/13/2024 Physical Signs of Abuse Present no 05/13/2024 Comments No Sex and Gender Information Value Date Recorded Sex Assigned at Not on file Legal Sex Female 10:34 AM EST Gender Identity Not on file Sexual Orientation Not on file documented as of this encounter Functional Status * Calculated C-SSRS Risk Score (Lifetime/Recent) Answer Date of Assessment Author No Risk Indicated 05/13/2024 10:40 AM Dana Patterson RN * [place] Suicide Severity Rating Scale (Screener/Recent Self-Report) Question Answer Date of Assessment Author 1. Wish to be (Past 1 Month) No 024 10:40 AM Dana Patterson, [place] 2. Non-Specific Active Suici bhaskar Thoughts (Past 1 Month) No 05/13/2024 10:40 AM Dana Patterson RN 6. Suicidal Behavior (Lifetime) No 10:40 AM Dana Patterson RN documented as of this encounter Plan of Treatment Upcoming Encounters Date Type Department Care Team (Late st Contact Info) Description 04/21/2025 9:30 AM EST Office Visit [facility]IC[facility] [address] [facility] [address] 04/21/2025 10:00 AM EST Office Visit [facility]UL[facility] MEDICINE [address] [facility] [address] Jael Solano, OCC MED PHYSICIAN [address] [place] [address] documented as of this encounter Procedures Procedure Name Priority Date/Time Associated Diagnosis Comments XR CHEST PA AND LATERAL Routine 10/16/2018 12:25 PM EDT Lung nodule documented in this encounter Results * XR Chest PA & Lateral (10/16/2018 12:25 PM EDT) Anatomical Region Laterality Modality Body, Chest N/A Radiographic Lizz ging Narrative 10/19/2018 9:44 AM EDT Chest x-ray PA and lateral Study date: October 16, 2018 Indication: Follow-up abnormal imaging. Comparison: Prior CT scan from 04/30/2018. Interpretation: Trachea is midline. Main hammad is sharp. There is no cardiomegaly. There is cervical hardware in place. There is scarring laterally within the right mid lung as well as medially, inferior to the right hilum. The location generally corresponds to the abnormality on prior CT imaging. No pleural effusion or pneumothorax. Interpretation: Scarring within the right lung laterally and inferior to the right hilum corresponding to abnormal density on recent CT scan. us Roger Francis MD IMG DIAGNOSTIC IMAGING ORDER VADIM Final Result documented in this encounter Visit Diagnoses Not on filedocumented in this encounter Additional Health Concerns Infection Onset Date Last Indicated Resolved Time COVID (rule out) 12/03/2020 12/04/2020 12/10/2020 9:08 PM EDT documented as of this encounter Care Teams Web Analytics Developer Relationship Specialty Start Date End Date Jonas Vigil MD PCP - General Family Medicine 10/16/18 05/02/24 documented as of this encounter
--- OUTSIDE RECORDS SUMMARY | 2022-04-19 10:58 | XMS_ITS | Encounter Summary ---
[facility] [address] [place] [address] Care Team Providers Care Rehabilitation Medicine Physician Name Role Phone Jonas Vigil MD Primary Care Provider + Encounter Details Date Type Department Care Team (Late st Contact Info) Description 04/19/2022 9:58 AM EST Hospital Encounter [facility] PUL[facility] CRITICAL CARE MEDICINE [address] [place] [address] Social History Tobacco Use Types [...] 10:40 AM EST Dana Potter RN * [place] Suicide Severity Rating Scale (Screener/Recent Self-Report) Question [...] Description 04/21/2025 9:30 AM EST Office Visit [facility] PUL[facility] CRITICAL CARE MEDICINE [address] [place] [address] 04/21/2025 10:00 AM EST Office Visit [facility] PULMON[facility] CRITICAL CARE MEDICINE [address] [place] [address] Jael Solano, POLE PEELING MACHINE OPERATOR [address] [place] [address] documented as of this encounter Procedures Procedure [...] on filedocumented in this encounter Care Teams Rehabilitation Medicine Physician Relationship Specialty Start Date End Date Jonas Vigil MD PCP - General Family Medicine 10/16/18 05/02/24 documented as of this encounter
--- OUTSIDE RECORDS SUMMARY | 2024-04-12 08:34 | XMS_ITS | Encounter Summary ---
[facility] Address [address] [place] [address] Care Team Providers Care Law Clerk Name Role Phone Jonas Vigil MD Primary Care Provider + Encounter Details Date Type Department Care Team (Late st Contact Info) Description 04/12/2024 8:34 AM EDT Hospital Encounter [facility] PULMONARY & CRITICAL CARE MEDICINE [address] [place] [phone] Social History Tobacco Use Types Packs/Day Years [...] 10:40 AM EST Dana Potter, [place] * [place] Suicide Severity Rating Scale (Screener/Recent Self-Report) Question [...] CENTER PULMONARY & CRITICAL CARE MEDICINE [address] [facility] [address] 04/21/2025 10:00 AM EST Office Visit [facility] PULMONARY & CRITICAL CARE MEDICINE [address] [facility] [address] Jael Solano APRN [address] [place] [address] documented as of this encounter Procedures Procedure [...] MD 04/15/2024 1:11 PM EST Workstation ID: [id number] Narrative 04/15/2024 1:11 PM EST XR CHEST [...] MD 04/15/2024 1:11 PM EST Workstation ID: [id number] Jael Solano INTERLOCKING INSTALLER IMG DIAGNOSTIC IMAGING ORDERA BLES Final Result documented in this encounter Visit Diagnoses Not on filedocumented in this encounter Care Teams Law Clerk Relationship Specialty Start Date End Date Jonas Vigil MD PCP - General Family Medicine 10/16/18 05/02/24 documented as of this encounter
--- OUTSIDE RECORDS SUMMARY | 2024-08-24 19:53 | XMS_ITS | Encounter Summary ---
[facility] Address [address] [place] [id number] Care Team Providers Care Concrete Building Assembler Name Role Phone Paty Cao APRN Primary Care Provider [phone] Reason for Referral * Medical Care (Routine) - Closed Specialty Diagnoses / Procedures Referred By Contac t Referred To Contact Sleep Medicine Diagnoses RYLIE (obstructive sleep apnea) Procedures Polysomnography 4 or More Parameters Jael Solano APRN [address] [place] [address] Phone: tel: fax: [facility] [address] [address] Phone: tel: fax: Referral ID Status Reason Start Date Expiration Date Visits Re quested Visits Authorized [id number] Closed 04/12/2024 09/16/2024 1 1 Reason for Visit * Medical Care (Routine) - Closed Specialty Diagnoses / Procedures Referred By Contac t Referred To Contact Sleep Medicine Diagnoses RYLIE (obstructive sleep apnea) Procedures Polysomnography 4 or More Parameters Jael Solano APRN [address] [place] [address] Phone: tel: fax: [facility] [address] [address] Phone: tel: fax: Referral ID Status Reason Start Date Expiration Date Visits Re quested Visits Authorized [id number] Closed 04/12/2024 09/16/2024 1 1 Encounter Details Date Type Department Care Team (Late st Contact Info) Description 08/24/2024 7:53 PM EDT Hospital Encounter [facility] [address] [place] [address] Jael Solano, TABLE LEVER OPERATOR [address] [place] [address] RYLIE (obstructive sleep apnea) Social History Tobacco [...] AM EST Office Visit [facility] PULMONARY & CRITICAL CARE MEDICINE [address] [place] [address] 04/21/2025 10:00 AM EST Office Visit [facility] PUL[facility] CRITICAL CARE MEDICINE [address] [place] [address] Jael Solano APRN [address] [place] [address] documented as of this encounter Procedures Procedure [...] (pediatric) documented in this encounter Care Teams Concrete Building Assembler Relationship Specialty Start Date End Date Paty Cao APRN [address] [place] [address] [place] [address] PCP - General Nurse Practitioner 05/03/24 documented as of this encounter
--- NOTE | 2025-02-17 09:30 | US_ITS ---
PROCEDURE INFORMATION: Exam: US Left Breast, Complete Exam date and time: 02/17/2025 9:47 AM Age: 49 years old Clinical indication: History of left cyst aspiration. Short-term sonographic follow-up of a left breast mass TECHNIQUE: Imaging protocol: Complete ultrasound of all four quadrants of the left breast and the retroareolar regions, including ultrasound of the axilla when performed. COMPARISON: US BIOPSY BREAST LT 08/02/2024 9:41 AM FINDINGS: ULTRASOUND: Breast ultrasound findings: Sonographic images of the left breast including the retroareolar region, all 4 quadrants and the axilla demonstrates a stable hypoechoic mass in the 6 o'clock axis 5 cm from the nipple measuring 0.3 x 0.4 x 0.3 cm. 0.4 cm left 10 o'clock axis cyst. 0.5 cm left 11 o'clock axis cyst. No architectural distortion or acoustical shadowing. No skin thickening or axillary adenopathy. IMPRESSION: Stable left 6 o'clock axis probable debris-filled cyst compared to prior sonogram dated 06/28/2024. A six-month follow-up targeted left breast ultrasound is recommended for continued close surveillance ASSESSMENT: BI-RADS Category 3: Probably benign.
--- OUTSIDE RECORDS SUMMARY | 2025-02-17 09:31 | XMS_ITS | Clinical Summary ---
[facility] Address [address] [place] [address] Care Team Providers Care Criminal Profiler Name Role Phone Paty Cao APRN Primary Care Provider [phone] Allergies No known active allergies Medications triamterene-hyd rochlorothiazid e (MAXZIDE-25) 37.5-25 MG per tablet 10 9 Active cholecalciferol (VITAMIN D3) 1000 units tablet Take 1 tablet by mouth Daily. Active meclizine (ANTIVERT) 25 MG tablet 1 tablet. 4 Active omeprazole (priLOSEC) 40 MG capsule 1 capsule QD 30 mins before breakfast Active levothyroxine (SYNTHROID, LEVOTHROID) 137 MCG tablet Take 1 tablet every day by oral route in the morning for 30 days. 4 Active albuterol sulfate HFA 108 (90 Base) MCG/ACT inhalerIndicati ons:Shortness of breath Inhale 2 puffs Every 4 (Four) Hours As Needed for Wheezing. 18 g 11 4 Active estradiol (MINIVELLE, VIVELLE-DOT) 0.05 MG/24HR patch Active Progesterone (PROMETRIUM) 200 MG capsule Activ e Active Problems Problem Noted Date Diagnosed Date Former cigarette smoker 07/22/2024 Electronic cigarette use 07/22/2024 Shortness of breath 04/12/2024 Acute cough 04/19/2022 Solitary lung nodule - new R ML in 2021, resolved on follow up CT, likely resolved infiltrate vs. atelectasis. 02/10/2022 GERD without esophagitis 02/10/2022 Thyroid cancer 10/16/2018 Multiple pulmonary nodules 10/16/2018 Family History Medical History Relation Name Comments Heart disease Father Gurvinder Hypertension Father Gurvinder Diabetes Maternal Grandmother Lizzy COPD Mother Marline Hypertension Mother Marline COPD Paternal Grandmother No Known Problems Sister Relation Name Status Comments Father Gurvinder Alive Maternal Grandfather Maternal Grandmother Lizzy Mother Marline Alive Paternal Grandfather Paternal Grandmother Sister Alive Social History Tobacco Use Types Packs/Day Years Used Date Smoking Tobacco: Former Cigarettes 0.5 25 0 07/13/1992 - 07/13/2017 Electronic Cigarette Smokeless Tobacco: Never Tobacco Cessation:Counseling Given: Not Answered Comments:Still use electronic vape Alcohol Use Standard Drinks/Week Comments No [...] on file Sexual Orientation Not on file Last Filed Vital Signs Vital Sign Reading Time Taken Comments Blood Pressure 119/70 08/24/2024 8:08 PM EDT Pulse 82 08/24/2024 8:08 PM EDT Temperature 36.3 C (97.4 F) 07/22/2024 1:31 PM EST Respiratory Rate 18 05/13/2024 11:45 AM EST Oxygen Saturation 97% 08/24/2024 8:08 PM EDT Inhaled Oxygen Concentration - - Weight 69.4 kg (153 lb) 08/24/2024 8:08 PM EDT Height 160 cm (5' 3 ) 08/24/2024 8:08 PM EDT Body Mass Index 27.1 08/24/2024 8:08 PM EDT Plan of Treatment Upcoming Encounters Date Type Department Care Team (Late st Contact Info) Description 04/21/2025 9:30 AM EST Office Visit [facility] [address] [place] [address] 04/21/2025 10:00 AM EST Office Visit [facility] [address] [place] [address] Jael Solano, MANAGER CONTRACTING [address] [place] [address] Health Maintenance Due Date Last Done Comments Annual Gynecologic Pelvic and Breast Exam 1974 TDAP/TD VACCINES (1 - Tdap) 1993 MAMMOGRAM 2014 ANNUAL PHYSICAL 07/24/2018 HEPATITIS C SCREENING 07/24/2018 COLOGUARD 2019 COLON CANCER SCREENING 5 YEA R SIGMOIDOSCOPY 2019 COLONOSCOPY [address] CANCER SCREENING 2019 CT COLONOGRAPHY 2019 FECAL OCCULT BLOOD TEST 2019 FIT Testing (1 year) 2019 Pneumococcal Vaccine 50+ (1 of 1 - PCV) 2024 ZOSTER VACCINE (1 of 2) 2024 COVID-19 Vaccine (3 - season) 02/10/202504/2021, 03/01/2021 INFLUENZA VACCINE 03/12/2025 Insurance [employer] [facility] PPO Care Teams Criminal Profiler Relationship Specialty Start Date End Date Paty Cao, ANGELA [address] [place] [address] [place] [id number] PCP - General Nurse Practitioner 05/03/24
--- OUTSIDE RECORDS SUMMARY | 2025-02-17 09:31 | XMS_ITS | Encounter Summary ---
[facility] [address] [place] [address] Care Team Providers Care Inspector Fabric Name Role Phone Paty aCo APRN Primary Care Provider [phone] Encounter Details Date Type Department Care Team (Late st Contact Info) Description 08/30/2024 Results Follow-Up [facility] [address] [place] [address] [place] [address] Jael Solano, ANGELA [address] [place] [address] Social History Tobacco Use Types Packs/Day Years [...] on file documented as of this encounter Plan of Treatment Upcoming Encounters Date Type Department Care Team (Late st Contact Info) Description 04/21/2025 9:30 AM EST Office Visit [facility] [address] [place] [address] 04/21/2025 10:00 AM EST Office Visit [facility] [address] [place] [address] Jael Solano, AUTO GLASS WORKER [address] [place] [address] documented as of this encounter Visit Diagnoses Not on filedocumented in this encounter Care Teams Inspector Fabric Relationship Specialty Start Date End Date Paty Cao, AUTO GLASS WORKER [address] [place] [address] PCP - General Nurse Practitioner 05/03/24 documented as of this encounter
[2025-02-17 13:31] LABS: Microscopic, Urine URINE MICROSCOPIC (MICROSCOPIC)
[2025-02-17 13:44] LABS: Hematocrit 41.2 % (37.0-47.0); Hemoglobin 13.4 g/dL (12.2-16.2); Immature Granulocytes % 0.5 %; Mean Corpuscular HGB Conc 32.5 g/dL (31.8-35.4); Mean Corpuscular Hemoglobin 28.5 pg (27.0-31.2); Mean Corpuscular Volume 87.7 fl (81-99); Nucleated Red Blood Cells % 0 %; Platelet Count 326 K/mm3 (142-424); Red Blood Count 4.70 M/mm3 (4.20-5.40); Red Cell Distribution Width-SD 39.5 fL; White Blood Count 8.4 K/mm3 (4.8-10.8)
[2025-02-17 13:49] LABS: Bilirubin,Urine Negative (Negative); Color,Urine YELLOW (Yellow); Glucose,Urine (UA) Negative (Negative); Ketones,Urine Negative (Negative); Leukocyte Esterase,Urine Negative (Negative); PH,Urine 6.5 (5.0-8.5); Protein,Urine Negative (Negative); Specific Gravity, Urine 1.020 (1.005-1.030); Urobilinogen,Urine 0.2 EU/dl (0.2)
[2025-02-17 13:57] LABS: Albumin Level 5.0 g/dl (3.5-5.0); Chloride 103 mmol/L (98-107); Potassium 4.5 mmoL/L (3.5-5.1); Sodium 137 mmol/L (136-145)
[2025-02-17 13:59] LABS: Alanine Aminotransferase 59 U/L (12-78); Aspartate Amino Transferase 37 U/L (14-36); Blood Urea Nitrogen 22 mg/dl (7-17); Creatinine,Serum 0.60 mg/dl (0.52-1.04); Estimated Glomerular Filt Rate 106 ml/min (>60); GFR (African American) 128 ML/MIN (>60)
[2025-02-17 14:00] LABS: Albumin/Globulin Ratio 1.9 (1.1-1.8); Alkaline Phosphatase 69 U/L (38-126); Anion Gap 13.5 mEq/L (5-15); Bilirubin,Total 0.3 mg/dl (0.2-1.3); Calcium 9.5 mg/dl (8.4-10.2); Carbon Dioxide 25 mmol/L (22.0-30.0); Cholesterol 203 mg/dl (140-200); Globulin 2.7 g/dL (1.3-3.2); Glucose 77 mg/dl (74-100); HDL Cholesterol 43 mg/dl (40-60); Iron 61 ug/dL (37-170); Total Protein,Serum 7.7 g/dl (6.3-8.2); Triglycerides 126 mg/dl (30-150)
[2025-02-17 14:10] LABS: Total Iron Binding Capacity 327 ug/dL (265-497)
[2025-02-17 14:18] LABS: Free T4 (Free Thyroxine) 1.60 ng/dl (0.78-2.19)
[2025-02-17 14:21] LABS: 25-OH Vitamin D, Total 75.4 ng/mL (30-100)
[2025-02-17 14:31] LABS: Thyroid Stimulating Hormone 1.98 uIU/mL (0.465-4.68)
[2025-02-17 14:36] LABS: Ferritin 80.9 ng/ml (6.24-137)
[2025-02-17 14:50] LABS: Vitamin B12 917 pg/mL (239-931)
[2025-02-17 15:41] LABS: Bacteria,Urine Trace /lpf; Mucus,Urine 1+ /lpf; Squamous Epithelial Cell,Urine Occasional #/hpf (0-5); WBC,Urine Occasional #/hpf (0-3)
[2025-02-17 16:37] LABS: Hemoglobin A1C 5.3 % (4.0-6.0)
== END 2025-02-17 23:59 | disposition home or self-care (01) ==
LOC: RAD 09:27
PROVIDERS: PCP Nurse Practitioner Family; Visit Provider Surgery
DX: Z00.00 Encounter for general adult medical examination without abnormal findings (principal); N63.25 Unspecified lump in the left breast, overlapping quadrants; N60.02 Solitary cyst of left breast; F41.9 Anxiety disorder, unspecified; E55.9 Vitamin D deficiency, unspecified; E03.9 Hypothyroidism, unspecified; Z13.220 Encounter for screening for lipoid disorders; I10 Essential (primary) hypertension; E11.9 Type 2 diabetes mellitus without complications; R41.3 Other amnesia; G47.33 Obstructive sleep apnea (adult) (pediatric); R92.8 Other abnormal and inconclusive findings on diagnostic imaging of breast; Z98.890 Other specified postprocedural states
CPT/HCPCS: 76641; 80053; 80061; 81001; 82306; 82607; 82728; 83036; 83540; 83550; 84439; 84443; 85025; 87086

== ENCOUNTER 2025-02-17 09:49 | Outpatient (CLI) | payer BC, OTHER, SELFPAY ==
--- OUTSIDE RECORDS SUMMARY | 2018-10-16 12:22 | XMS_ITS | Encounter Summary ---
[facility] [address] [place] [address] Care Team Providers Care Category Planner Name Role Phone Jonas Vigil MD Primary Care Provider + Encounter Details Date Type Department Care Team (Late st Contact Info) Description 10/16/2018 12:22 PM EDT Hospital Encounter [facility] PUL[facility] CRITICAL CARE MEDICINE [address] [place] [phone] Social History Tobacco Use Types Packs/Day Years [...] 05/13/2024 10:40 AM Dana Patterson RN * [place] Suicide Severity Rating Scale (Screener/Recent Self-Report) Question [...] Description 04/21/2025 9:30 AM EST Office Visit [facility] PUL[facility]ICAL CARE MEDICINE [address] [place] [address] 04/21/2025 10:00 AM EST Office Visit [facility] PUL[facility]ICAL CARE MEDICINE [address] [place] [address] Jael Solano, AUTOMOTIVE TIRE TESTING SUPERVISOR [address] [place] [address] documented as of this encounter Procedures Procedure [...] documented as of this encounter Care Teams Category Planner Relationship Specialty Start Date End Date Jonas Vigil MD PCP - General Family Medicine 10/16/18 05/02/24 documented as of this encounter
--- OUTSIDE RECORDS SUMMARY | 2022-04-19 10:58 | XMS_ITS | Encounter Summary ---
[facility] [address] [place] [address] Care Team Providers Care Notcher Name Role Phone Jonas Vigil MD Primary Care Provider + Encounter Details Date Type Department Care Team (Late st Contact Info) Description 04/19/2022 9:58 AM EST Hospital Encounter [facility] PUL[facility] CRITICAL CARE MEDICINE [address] [place] [address] Social History Tobacco Use Types Packs/Day Years [...] Author No Risk Indicated 05/13/2024 10:40 AM EST Dana Potter RN * [place] Suicide Severity Rating Scale (Screener/Recent Self-Report) Question Answer Date of Assessment Author 1. Wish to be (Past 1 Month) No 024 10:40 AM Dana Patterson, [place] 2. Non-Specific Active Suici bhaskar Thoughts (Past 1 Month) No 05/13/2024 10:40 AM Dana Patterson RN 6. Suicidal Behavior (Lifetime) No 10:40 AM EST Dana Potter RN documented as of this encounter Plan of Treatment Upcoming Encounters Date Type Department Care Team (Late st Contact Info) Description 04/21/2025 9:30 AM EST Office Visit [facility] PUL[facility] & [facility]ITICAL CARE MEDICINE [address] [facility] [place] [place] [address] 04/21/2025 10:00 AM EST Office Visit [facility] PUL[facility]ITICAL CARE MEDICINE [address] [facility] [place] [place] [address] Jael Solano, JAVA ENGINEER [address] [place] [address] documented as of this encounter Procedures Procedure Name Priority Date/Time Associated Diagnosis Comments XR CHEST PA AND LATERAL Routine 04/19/2022 10:02 AM EST Acute cough documented in this encounter Results * XR Chest PA & Lateral (04/19/2022 10:02 AM EST) Anatomical Region Laterality Modality Body, Chest N/A Radiographic Lizz ging Narrative 04/19/2022 10:26 AM EST Chest x-ray PA and lateral Study date: [...] Diagnoses Not on filedocumented in this encounter Care Teams Notcher Relationship Specialty Start Date End Date Jonas Vigil MD PCP - General Family Medicine 10/16/18 05/02/24 documented as of this encounter
--- OUTSIDE RECORDS SUMMARY | 2024-04-12 08:34 | XMS_ITS | Encounter Summary ---
[facility] Address [address] [place] [address] Care Team Providers Care Cloth Bolt Bander Name Role Phone Jonas Vigil MD Primary Care Provider + Encounter Details Date Type Department Care Team (Late st Contact Info) Description 04/12/2024 8:34 AM EDT Hospital Encounter [facility] PULMONARY & CRITICAL CARE MEDICINE [address] [place] [id number] Social History Tobacco Use Types Packs/Day Years [...] Risk Indicated 05/13/2024 10:40 AM EST Dana Potter, [place] * [place] Suicide Severity Rating Scale (Screener/Recent Self-Report) Question Answer Date of Assessment Author 1. Wish to be (Past 1 Month) No 024 10:40 AM Dana Patterson, RN 2. Non-Specific Active Suici bhaskar Thoughts (Past 1 Month) No 05/13/2024 10:40 AM Dana Patterson, RN 6. Suicidal Behavior (Lifetime) No 10:40 AM Dana Patterson, RN documented as of this encounter Plan of Treatment Upcoming Encounters Date Type Department Care Team (Late st Contact Info) Description 04/21/2025 9:30 AM EST Office Visit [facility] PULMONARY & CRITICAL CARE MEDICINE [address] [facility] [place] [address] 04/21/2025 10:00 AM EST Office Visit [facility] PULMONARY & CRITICAL CARE MEDICINE [address] [facility] [place] [address] Jael Solano APRN [address] [place] [address] documented as of this encounter Procedures Procedure Name Priority Date/Time Associated Diagnosis Comments XR CHEST PA AND LATERAL Routine 04/12/2024 8:35 AM EDT Shortness of breath documented in this encounter Results * XR Chest PA & Lateral (04/12/2024 8:35 AM EDT) Anatomical Region Laterality Modality Body, Chest N/A Radiographic Lizz ging 04/15/2024 1:08 PM EST Impressions 04/15/2024 1:11 PM EST Impression: No evidence of acute cardiopulmonary disease. Similar chronic findings as above. Electronically Signed: Frederic Metzger MD 04/15/2024 1:11 PM EST Workstation ID: [id number] Narrative 04/15/2024 1:11 PM EST XR CHEST PA AND LATERAL Date of Exam: 04/12/2024 8:34 AM EDT Indication: SOA Comparison: Chest radiograph 04/19/2022. Findings: Cardiomediastinal silhouette is within normal limits. Benign calcified granulomas with regional scarring in the right mid and lower lung, unchanged. No focal consolidation. No pleural effusion or pneumothorax. Osseous structures are unchanged with ACDF hardware again noted. Procedure Note Frederic Metzger MD - 04/15/2024 XR CHEST PA AND LATERAL Date of Exam: 04/12/2024 8:34 AM EDT Indication: SOA Comparison: Chest radiograph 04/19/2022. Findings: Cardiomediastinal silhouette is within normal limits. Benign calcifiedgranulomas with regional scarring in the right mid and lower lung,unchanged. No focal consolidation. No pleural effusion or pneumothorax.Osseous structures are unchanged with ACDF hardware again noted. IMPRESSION: Impression: No evidence of acute cardiopulmonary disease. Similar chronic findings asabove. Electronically Signed: Frederic Metzger MD 04/15/2024 1:11 PM EST Workstation ID: [id number] Jael Solano REVERSAL PRINT INSPECTOR IMG DIAGNOSTIC IMAGING ORDERA BLES Final Result documented in this encounter Visit Diagnoses Not on filedocumented in this encounter Care Teams Cloth Bolt Bander Relationship Specialty Start Date End Date Jonas Vigil MD PCP - General Family Medicine 10/16/18 05/02/24 documented as of this encounter
--- OUTSIDE RECORDS SUMMARY | 2024-08-24 19:53 | XMS_ITS | Encounter Summary ---
[facility] Address [address] [place] [id number] Care Team Providers Care Environmental Property Assessor Name Role Phone Paty Cao APRN Primary Care Provider [phone] Reason for Referral * Medical Care (Routine) - Closed Specialty Diagnoses / Procedures Referred By Contac t Referred To Contact Sleep Medicine Diagnoses RYLIE (obstructive sleep apnea) Procedures Polysomnography 4 or More Parameters Jael Solano APRN [address] [place] [address] Phone: tel: fax: [facility] [address] [address] Phone: tel: fax: Referral ID Status Reason Start Date Expiration Date Visits Re quested Visits Authorized [id number] Closed 04/12/2024 09/16/2024 1 1 Reason for Visit * Medical Care (Routine) - Closed Specialty Diagnoses / Procedures Referred By Contac t Referred To Contact Sleep Medicine Diagnoses RYLIE (obstructive sleep apnea) Procedures Polysomnography 4 or More Parameters Jael Solano APRN [address] [place] [address] Phone: tel: fax: [facility] [address] [address] Phone: tel: fax: Referral ID Status Reason Start Date Expiration Date Visits Re quested Visits Authorized [id number] Closed 04/12/2024 09/16/2024 1 1 Encounter Details Date Type Department Care Team (Late st Contact Info) Description 08/24/2024 7:53 PM EDT Hospital Encounter [facility] [address] [place] [address] Jael Solano, DATA ADMINISTRATOR [address] [place] [address] RYLIE (obstructive sleep apnea) Social History Tobacco Use Types Packs/Day Years [...] on file documented as of this encounter Last Filed Vital Signs Vital Sign Reading Time Taken Comments Blood Pressure 119/70 08/24/2024 8:08 PM EDT Pulse 82 08/24/2024 8:08 PM EDT Temperature - - Respiratory Rate - - Oxygen Saturation 97% 08/24/2024 8:08 PM EDT Inhaled Oxygen Concentration - - Weight 69.4 kg (153 lb) 08/24/2024 8:08 PM EDT Height 160 cm (5' 3 ) 08/24/2024 8:08 PM EDT Body Mass Index 27.1 08/24/2024 8:08 PM EDT documented in this encounter Plan of Treatment Upcoming Encounters Date Type Department Care Team (Late st Contact Info) Description 04/21/2025 9:30 AM EST Office Visit [facility] PULMON[facility] & CRITICAL CARE MEDICINE [address] [place] [address] 04/21/2025 10:00 AM EST Office Visit [facility] PULMONARY & CRITICAL CARE MEDICINE [address] [facility] [address] Jael Solano APRN [address] [place] [address] documented as of this encounter Procedures Procedure Name Priority Date/Time Associated Diagnosis Comments NPSG Routine 08/25/2024 5:21 AM EDT RYLIE (obstructive sleep apnea) documented in this encounter Results * NPSG (08/25/2024 5:21 AM EDT) Narrative SLEEP MEDICINE - 08/29/2024 6:32 PM EDT Table formatting from the original result was not included. Polysomnography Report Patient Name: Nuria Merchant Interpreting Physician: Kwame Rice MD Date of : 1975 Referring Provider: Jael Solano APRN Primary Care Provider: Paty Cao APRN Date of Study: 08/24/2024 Clinical Information 49-year-old female seen by Jael Solano APRN in the pulmonary clinic. She is being evaluated for obstructive airways disease as well as an abnormal CAT scan. Symptoms of daytime somnolence and snoring as well as nocturnal oxygen desaturation in the past were elicited and a PSG was ordered. Methods used for Diagnostic Study: Subject was monitored in the sleep laboratory. Electroencephalogram (C3/M2, C4/M1, F3/M2, F4/M1, 01/M2, O2/M1), EOG, EKG, and EMG (chin and bilateral anterior tibialis) were monitored by surface electrodes and recorded utilizing a computerized polygraph. Airflow was recorded by a thermistor and pressure transducer at the nose and mouth and oxygen saturation was recorded by a pulse oximeter. Thoracic and abdominal respiratory movements were recorded on 2 separate channels by respiratory inductive plethysmograph. Sleep stages were scored by standard techniques and abnormal respiratory events, cardiac arrhythmias, and leg movements were analyzed. Polysomnography Results - Normal sleep efficiency - All sleep stages were present - Reduced REM sleep - Increase in arousal index indicating sleep fragmentation - AHI within normal limits - Normal PLM index - Oxygen saturations averaged 96% with saturations less than 89% for a total of 0 minutes in total throughout the night - Cardiac rhythm predominantly sinus Impression: No evidence of sleep disordered breathing/sleep apnea Oxygen desaturations of significance to below 89% were not noted on room air No evidence of a limb movement disorder Sleep fragmentation was present though this certainly could be a lab effect Recommendations: Explanation for the patient's daytime symptoms are not present on this study. Would not recommend PAP therapy or supplemental oxygen at night based upon the study Follow-up: Jael Solano APRN Electronically signed by: Kwame Rice MD 08/29/24 18:27 EDT Jael Solano APRN [facility] ORDERABLES Final Result SLEEP MEDICINE documented in this encounter Visit Diagnoses Diagnosis RYLIE (obstructive sleep apnea) Obstructive sleep apnea (adult) (pediatric) documented in this encounter Care Teams Environmental Property Assessor Relationship Specialty Start Date End Date Paty Cao APRN [address] [place] [address] [place] [address] PCP - General Nurse Practitioner 05/03/24 documented as of this encounter
--- OUTSIDE RECORDS SUMMARY | 2025-02-19 09:53 | XMS_ITS | Clinical Summary ---
[facility] [address] [place] [address] Care Team Providers Care Director Of Securities And Real Estate Name Role Phone Paty Cao APRN Primary Care Provider [phone] Allergies No known active allergies Medications triamterene-hyd [...] 04/21/2025 9:30 AM EST Office Visit [facility] [address] [place] [address] 04/21/2025 10:00 AM EST Office Visit [facility] [address] [place] [address] Jael Solano, SENIOR PRODUCTION MANAGER [address] [place] [address] Health Maintenance Due Date Last [...] 02/10/202504/2021, 03/01/2021 INFLUENZA VACCINE 03/12/2025 Insurance [facility] P[facility] Care Teams Director Of Securities And Real Estate Relationship Specialty Start Date End Date Paty Cao, ANGELA [address] [place] [address] [place] [id number] PCP - General Nurse Practitioner 05/03/24
--- OUTSIDE RECORDS SUMMARY | 2025-02-19 09:54 | XMS_ITS | Encounter Summary ---
[facility] [address] [place] [address] Care Team Providers Care Fruit Worker Name Role Phone Paty Cao APRN Primary Care Provider [phone] Encounter Details Date Type Department Care Team (Late st Contact Info) Description 08/30/2024 Results Follow-Up [facility] [address] [place] [address] Jael Solano, ANGELA [address] [place] [address] Social History Tobacco Use Types Packs/Day Years [...] [facility] [address] [facility] [place] [address] 04/21/2025 10:00 AM EST Office Visit [facility]IC[facility] [address] [place] [address] Jael Solano, SAFETY SPECIALIST [address] [place] [address] documented as of this encounter Visit Diagnoses Not on filedocumented in this encounter Care Teams Fruit Worker Relationship Specialty Start Date End Date Paty Cao, SAFETY SPECIALIST [address] [place] [id number] PCP - General Nurse Practitioner 05/03/24 documented as of this encounter
== END 2025-02-17 23:59 ==
LOC: LAB.DROPOF 02-19 09:50
PROVIDERS: PCP Nurse Practitioner Family; Visit Provider Nurse Practitioner Family
DX: Z00.00 Encounter for general adult medical examination without abnormal findings (principal); E55.9 Vitamin D deficiency, unspecified; F41.9 Anxiety disorder, unspecified; E03.9 Hypothyroidism, unspecified; Z13.220 Encounter for screening for lipoid disorders; R53.83 Other fatigue; I10 Essential (primary) hypertension; R41.3 Other amnesia; E11.9 Type 2 diabetes mellitus without complications
CPT/HCPCS: 80053; 80061; 81001; 82306; 82607; 82728; 83036; 83540; 83550; 84439; 84443; 85025; 87086